=== PATIENT | female | born 1970 | race Caucasian/White ===

== ENCOUNTER 2019-09-20 08:29 | Outpatient (CLI) | payer OTHER, SELFPAY ==
[2019-09-20 08:47] LABS: Basophils Absolute Auto 0.04 K/mm3 (0.00-0.10); Basophils Percent Auto 0.7 % (0.0-1.0); Eosinophils Absolute Auto 0.09 K/mm3 (0.02-0.50); Eosinophils Percent Auto 1.6 % (1.0-6.0); Hematocrit 38.9 % (35.0-49.0); Hemoglobin 13.5 g/dL (12.0-15.0); Immature Granulocyte Absolute 0.02 K/mm3 (0.00-0.00); Immature Granulocyte Percent A 0.3 % (0.0-0.0); Lymphocytes Absolute Auto 1.69 K/mm3 (1.10-4.50); Lymphocytes Percent Auto 29.1 % (18.0-42.0); Mean Corpuscular HGB Conc 34.7 g/dL (32.0-36.0); Mean Corpuscular Hemoglobin 31.3 pg (27.0-31.0); Mean Corpuscular Volume 90.3 fL (78.0-102.0); Mean Platelet Volume 9.2 fl (9.2-11.8); Monocytes Absolute Auto 0.43 K/mm3 (0.10-0.90); Monocytes Percent Auto 7.4 % (2.0-11.0); Neutrophils Absolute Auto 3.5 K/mm3 (1.7-7.2); Neutrophils Percent Auto 60.9 % (50.0-70.0); Platelet Count Result 227 K/mm3 (150-420); Red Blood Count 4.31 M/mm3 (4.20-5.40); Red Cell Distribution Width 11.3 % (11.6-14.4); White Blood Count 5.8 K/mm3 (4.8-10.8)
[2019-09-20 09:30] LABS: Alanine Aminotransferase 52 U/L (14-59); Albumin Level 3.8 g/dL (3.4-5.0); Alkaline Phosphatase 65 U/L (46-116); Anion Gap 10.3 mmol/L (7-16); Aspartate Amino Transferase 35 U/L (15-37); Bilirubin,Total 0.6 mg/dL (0.00-1.00); Blood Urea Nitrogen 12 mg/dL (7-18); Calcium 8.7 mg/dL (8.5-10.1); Carbon Dioxide 30 mmol/L (21-32); Chloride 105 mmol/L (98-108); Estimated Glomerular Filt Rate > 60; Glucose 89 mg/dL (70-99); Osmolality Calculated 290 mOsm/kg (285-295); Potassium 4.3 mmol/L (3.5-5.1); Sodium 141 mmol/L (136-145); Total Protein 6.7 g/dL (6.4-8.2)
[2019-09-23 06:12] LABS: CA 27.29 13 U/mL (<38)
== END 2019-09-20 08:30 | disposition home or self-care (01) ==
PROVIDERS: PCP Internal Medicine; Visit Provider Internal Medicine Hematology & Oncology
DX: C50.212 Malignant neoplasm of upper-inner quadrant of left female breast (principal); Z17.0 Estrogen receptor positive status [ER+]
CPT/HCPCS: 36415; 80053; 85025; 86300

== ENCOUNTER 2019-09-20 10:30 | Outpatient (CLI) | payer OTHER, SELFPAY ==
--- NOTE | ~2019-09-20 | MM_ITS ---
EXAMINATION: MM screening fuad BI w jackeline HISTORY: Screening mammogram, history of left breast cancer TECHNIQUE: Craniocaudal and mediolateral oblique 3-D tomosynthesis images were obtained and synthetic 2-D images were generated. CAD analysis was submitted and interpreted. COMPARISON: 09/18/2018, 09/14/2017, 09/02/2016 BREAST PARENCHYMAL COMPOSITION: There are scattered areas of fibroglandular density. FINDINGS: There is continual interval decrease in prominence of lumpectomy changes in the posterior t hird of the inner left breast. There is no evidence of suspicious mass, calcification, or architectur al distortion to suggest malignancy in either breast. There has been no suspicious interval change. IMPRESSION: 1. No mammographic evidence of malignancy. 2. Recommend routine screening mammography in one year. BI-RADS Category 2: Benign finding(s). Reviewed, dictated and finalized at location A.
== END 2019-09-20 10:31 | disposition home or self-care (01) ==
LOC: ANHIMG 10:33
PROVIDERS: PCP Internal Medicine; Visit Provider Internal Medicine Hematology & Oncology
DX: Z12.31 Encounter for screening mammogram for malignant neoplasm of breast (principal)
CPT/HCPCS: 77063; 77067

== ENCOUNTER 2019-10-02 09:38 | Outpatient (CLI) | payer OTHER, SELFPAY ==
[2019-10-05 04:56] LABS: FSH 33.5 mIU/mL (***)
[2019-10-09 16:54] LABS: Estradiol, Ultrasensitive 135 pg/mL
== END 2019-10-02 09:39 | disposition home or self-care (01) ==
PROVIDERS: PCP Internal Medicine; Visit Provider Internal Medicine Hematology & Oncology
DX: C50.212 Malignant neoplasm of upper-inner quadrant of left female breast (principal); Z17.0 Estrogen receptor positive status [ER+]
CPT/HCPCS: 36415; 82670; 83001

== ENCOUNTER 2020-03-13 07:35 | Outpatient (CLI) | payer OTHER, SELFPAY ==
[2020-03-13 07:49] LABS: Basophils Absolute Auto 0.04 K/mm3 (0.00-0.10); Basophils Percent Auto 0.7 % (0.0-1.0); Eosinophils Absolute Auto 0.11 K/mm3 (0.02-0.50); Eosinophils Percent Auto 1.8 % (1.0-6.0); Hematocrit 38.9 % (35.0-49.0); Hemoglobin 13.2 g/dL (12.0-15.0); Immature Granulocyte Absolute 0.01 K/mm3 (0.00-0.00); Immature Granulocyte Percent A 0.2 % (0.0-0.0); Lymphocytes Absolute Auto 1.56 K/mm3 (1.10-4.50); Lymphocytes Percent Auto 25.7 % (18.0-42.0); Mean Corpuscular HGB Conc 33.9 g/dL (32.0-36.0); Mean Corpuscular Hemoglobin 31.1 pg (27.0-31.0); Mean Corpuscular Volume 91.7 fL (78.0-102.0); Mean Platelet Volume 8.6 fl (9.2-11.8); Monocytes Absolute Auto 0.47 K/mm3 (0.10-0.90); Monocytes Percent Auto 7.7 % (2.0-11.0); Neutrophils Absolute Auto 3.9 K/mm3 (1.7-7.2); Neutrophils Percent Auto 63.9 % (50.0-70.0); Platelet Count Result 224 K/mm3 (150-420); Red Blood Count 4.24 M/mm3 (4.20-5.40); Red Cell Distribution Width 11.4 % (11.6-14.4); White Blood Count 6.1 K/mm3 (4.8-10.8)
[2020-03-13 08:22] LABS: Alanine Aminotransferase 69 U/L (14-59); Albumin Level 3.9 g/dL (3.4-5.0); Alkaline Phosphatase 63 U/L (46-116); Anion Gap 7 mmol/L (8-16); Aspartate Amino Transferase 35 U/L (15-37); Bilirubin,Total 0.6 mg/dL (0.00-1.00); Blood Urea Nitrogen 15 mg/dL (7-18); Calcium 8.8 mg/dL (8.5-10.1); Carbon Dioxide 31 mmol/L (21-32); Chloride 105 mmol/L (98-108); Estimated Glomerular Filt Rate > 60; Glucose 86 mg/dL (70-99); Osmolality Calculated 295 mOsm/kg (285-295); Potassium 4.2 mmol/L (3.5-5.1); Sodium 143 mmol/L (136-145); Total Protein 6.7 g/dL (6.4-8.2)
[2020-03-17 09:19] LABS: CA 27.29 11 U/mL (<38)
== END 2020-03-13 07:36 | disposition home or self-care (01) ==
LOC: CHSLAB 07:39
PROVIDERS: PCP Internal Medicine; Visit Provider Internal Medicine Hematology & Oncology
DX: C50.212 Malignant neoplasm of upper-inner quadrant of left female breast (principal)
CPT/HCPCS: 36415; 80053; 82378; 85025; 86300

== ENCOUNTER 2020-09-16 06:34 | Outpatient (CLI) | payer OTHER, SELFPAY ==
[2020-09-16 06:55] LABS: Basophils Absolute Auto 0.04 K/mm3 (0.00-0.10); Basophils Percent Auto 0.6 % (0.0-1.0); Eosinophils Absolute Auto 0.12 K/mm3 (0.02-0.50); Eosinophils Percent Auto 1.7 % (1.0-6.0); Hematocrit 37.1 % (35.0-49.0); Hemoglobin 12.7 g/dL (12.0-15.0); Immature Granulocyte Absolute 0.02 K/mm3 (0.00-0.00); Immature Granulocyte Percent A 0.3 % (0.0-0.0); Lymphocytes Absolute Auto 1.77 K/mm3 (1.10-4.50); Lymphocytes Percent Auto 24.6 % (18.0-42.0); Mean Corpuscular HGB Conc 34.2 g/dL (32.0-36.0); Mean Corpuscular Hemoglobin 31.4 pg (27.0-31.0); Mean Corpuscular Volume 91.6 fL (78.0-102.0); Mean Platelet Volume 9.2 fl (9.2-11.8); Monocytes Absolute Auto 0.58 K/mm3 (0.10-0.90); Monocytes Percent Auto 8.1 % (2.0-11.0); Neutrophils Absolute Auto 4.7 K/mm3 (1.7-7.2); Neutrophils Percent Auto 64.7 % (50.0-70.0); Platelet Count Result 217 K/mm3 (150-420); Red Blood Count 4.05 M/mm3 (4.20-5.40); Red Cell Distribution Width 11.6 % (11.6-14.4); White Blood Count 7.2 K/mm3 (4.8-10.8)
[2020-09-16 07:40] LABS: Alanine Aminotransferase 77 U/L (14-59); Albumin Level 3.6 g/dL (3.4-5.0); Alkaline Phosphatase 104 U/L (46-116); Anion Gap 7 mmol/L (8-16); Aspartate Amino Transferase 35 U/L (15-37); Bilirubin,Total 0.3 mg/dL (0.00-1.00); Blood Urea Nitrogen 16 mg/dL (7-18); Calcium 8.3 mg/dL (8.5-10.1); Carbon Dioxide 27 mmol/L (21-32); Chloride 106 mmol/L (98-108); Estimated Glomerular Filt Rate > 60; Glucose 102 mg/dL (70-99); Osmolality Calculated 291 mOsm/kg (285-295); Potassium 4.3 mmol/L (3.5-5.1); Sodium 140 mmol/L (136-145); Total Protein 6.5 g/dL (6.4-8.2)
[2020-09-20 07:46] LABS: CA 27.29 10 U/mL (<38); FSH 12.5 mIU/mL (***)
[2020-09-23 17:07] LABS: Estradiol, Ultrasensitive 111 pg/mL
== END 2020-09-16 06:35 | disposition home or self-care (01) ==
LOC: CHSLAB 06:37
PROVIDERS: PCP Internal Medicine; Visit Provider Internal Medicine Hematology & Oncology
DX: C50.212 Malignant neoplasm of upper-inner quadrant of left female breast (principal); Z17.0 Estrogen receptor positive status [ER+]
CPT/HCPCS: 36415; 80053; 82670; 83001; 85025; 86300

== ENCOUNTER 2020-09-22 09:52 | Outpatient (CLI) | payer OTHER, SELFPAY ==
--- NOTE | ~2020-09-22 | MM_ITS ---
EXAMINATION: MM screening fuad BI w jackeline HISTORY: Screening mammogram TECHNIQUE: Craniocaudal and mediolateral oblique 3-D tomosynthesis images were obtained and synthetic 2-D images were generated. CAD analysis was submitted and interpreted. COMPARISON: 09/20/2019, 09/18/2018 bilateral digital screening mammogram examinations BREAST PARENCHYMAL COMPOSITION: There are scattered areas of fibroglandular density. FINDINGS: Stable postoperative scarring of the posterior inner left breast; history of left partial m astectomy for breast cancer in 2016. There is no evidence of suspicious mass, calcification, or archi tectural distortion to suggest malignancy in either breast. There has been no suspicious interval denis nge. IMPRESSION: 1. No mammographic evidence of malignancy. 2. Recommend routine screening mammography in one year. BI-RADS Category 2: Benign finding(s). Reviewed, dictated and finalized at location A.
== END 2020-09-22 09:53 | disposition home or self-care (01) ==
LOC: ANHIMG 09:54
PROVIDERS: PCP Internal Medicine; Visit Provider Nurse Practitioner Adult Health
DX: Z12.31 Encounter for screening mammogram for malignant neoplasm of breast (principal)
CPT/HCPCS: 77063; 77067

== ENCOUNTER 2021-01-21 07:32 | Outpatient (CLI) | payer OTHER, SELFPAY ==
[2021-01-21 07:48] LABS: Basophils Absolute Auto 0.04 K/mm3 (0.00-0.10); Basophils Percent Auto 0.8 % (0.0-1.0); Eosinophils Percent Auto 1.9 % (1.0-6.0); Hematocrit 39.8 % (35.0-49.0); Hemoglobin 13.5 g/dL (12.0-15.0); Immature Granulocyte Absolute 0.01 K/mm3 (0.00-0.00); Immature Granulocyte Percent A 0.2 % (0.0-0.0); Lymphocytes Absolute Auto 1.75 K/mm3 (1.10-4.50); Lymphocytes Percent Auto 32.9 % (18.0-42.0); Mean Corpuscular HGB Conc 33.9 g/dL (32.0-36.0); Mean Corpuscular Volume 91.3 fL (78.0-102.0); Mean Platelet Volume 8.7 fl (9.2-11.8); Monocytes Absolute Auto 0.45 K/mm3 (0.10-0.90); Monocytes Percent Auto 8.5 % (2.0-11.0); Neutrophils Percent Auto 55.7 % (50.0-70.0); Platelet Count Result 208 K/mm3 (150-420); Red Blood Count 4.36 M/mm3 (4.20-5.40); Red Cell Distribution Width 11.7 % (11.6-14.4); White Blood Count 5.3 K/mm3 (4.8-10.8)
[2021-01-21 07:56] LABS: Appearance Urine Sl Cloudy (Clear); Bilirubin Urine Negative (Negative); Color Urine Light Yellow (Yellow); Glucose Urine UA Negative (Negative); Ketones Urine Negative (Negative); Leukocyte Esterase Ur 1+ (Negative); Nitrate Urine Negative (Negative); Protein Urine Negative (Negative); Urobilinogen Urine 0.2 mg/dL (0.2-1.0)
[2021-01-21 08:08] LABS: Add Urine Microscopic? YES; Bacteria Urine 1+ /hpf; Blood Urine Trace-lysed (Negative); RBC Urine 0-2 /hpf (0-2); Squamous Epithelial Cell Urine Moderate /hpf (Few)
[2021-01-21 08:38] LABS: Alanine Aminotransferase 63 U/L (14-59); Albumin Level 3.8 g/dL (3.4-5.0); Alkaline Phosphatase 69 U/L (46-116); Anion Gap 10 mmol/L (8-16); Aspartate Amino Transferase 33 U/L (15-37); Bilirubin,Total 0.7 mg/dL (0.00-1.00); Blood Urea Nitrogen 10 mg/dL (7-18); Calcium 8.4 mg/dL (8.5-10.1); Carbon Dioxide 29 mmol/L (21-32); Chloride 106 mmol/L (98-108); Cholesterol 182 mg/dL (0-200); Estimated Glomerular Filt Rate > 60; Free T3 2.77 pg/mL (2.18-3.98); Free T4 Free Thyroxine 0.92 ng/dL (0.76-1.46); Glucose 104 mg/dL (70-99); HDL Direct 41 mg/dL (40-60); LDL Cholesterol Calculated 117 mg/dL (<130); Osmolality Calculated 299 mOsm/kg (285-295); Potassium 4.1 mmol/L (3.5-5.1); Sodium 145 mmol/L (136-145); Thyroid Stimulating Hormone 3.07 uIU/mL (0.36-3.74); Total Protein 6.7 g/dL (6.4-8.2); Triglycerides 120 mg/dL (0-150)
[2021-01-25 12:15] LABS: Vitamin D 25 Hydroxy 30 ng/mL (30-100)
== END 2021-01-21 07:33 | disposition home or self-care (01) ==
LOC: CHSLAB 07:34
PROVIDERS: PCP Internal Medicine; Visit Provider Internal Medicine
DX: Z00.00 Encounter for general adult medical examination without abnormal findings (principal)
CPT/HCPCS: 36415; 80053; 80061; 81001; 82306; 84439; 84443; 84481; 85025

== ENCOUNTER 2021-04-03 15:42 | Outpatient (CLI) | payer OTHER, SELFPAY ==
[2021-04-03 17:05] LABS: Alanine Aminotransferase 37 U/L (14-59); Albumin Level 3.4 g/dL (3.4-5.0); Alkaline Phosphatase 64 U/L (46-116); Anion Gap 9 mmol/L (8-16); Aspartate Amino Transferase 24 U/L (15-37); Bilirubin,Total 0.6 mg/dL (0.00-1.00); Blood Urea Nitrogen 17 mg/dL (7-18); Calcium 8.6 mg/dL (8.5-10.1); Carbon Dioxide 25 mmol/L (21-32); Chloride 105 mmol/L (98-108); Estimated Glomerular Filt Rate > 60; Glucose 102 mg/dL (70-99); Osmolality Calculated 289 mOsm/kg (285-295); Potassium 3.8 mmol/L (3.5-5.1); Sodium 139 mmol/L (136-145); Total Protein 6.2 g/dL (6.4-8.2)
[2021-04-08 07:16] LABS: FSH 41.9 mIU/mL (***)
== END 2021-04-03 15:43 | disposition home or self-care (01) ==
LOC: CHSLAB 15:44
PROVIDERS: PCP Internal Medicine; Visit Provider Internal Medicine Medical Oncology
DX: Z85.3 Personal history of malignant neoplasm of breast (principal); C50.212 Malignant neoplasm of upper-inner quadrant of left female breast; Z17.0 Estrogen receptor positive status [ER+]
CPT/HCPCS: 36415; 80053; 83001

== ENCOUNTER 2021-04-22 18:55 | Outpatient (CLI) | payer OTHER, SELFPAY ==
[2021-04-26 08:29] LABS: LH 32.5 mIU/mL (***)
== END 2021-04-22 18:56 | disposition home or self-care (01) ==
LOC: CHSLAB 18:57
PROVIDERS: PCP Internal Medicine; Visit Provider Internal Medicine Hematology & Oncology
DX: C50.212 Malignant neoplasm of upper-inner quadrant of left female breast (principal); Z17.0 Estrogen receptor positive status [ER+]
CPT/HCPCS: 36415; 83002

== ENCOUNTER 2021-04-30 10:15 | Outpatient (CLI) | payer OTHER, SELFPAY ==
[2021-04-30 10:42] LABS: Hemoglobin A1C 5.6 % (<5.7)
[2021-04-30 11:07] LABS: Alanine Aminotransferase 30 U/L (14-59); Albumin Level 3.8 g/dL (3.4-5.0); Alkaline Phosphatase 72 U/L (46-116); Anion Gap 8 mmol/L (8-16); Aspartate Amino Transferase 18 U/L (15-37); Bilirubin,Total 0.7 mg/dL (0.00-1.00); Blood Urea Nitrogen 15 mg/dL (7-18); Carbon Dioxide 28 mmol/L (21-32); Chloride 105 mmol/L (98-108); Estimated Glomerular Filt Rate > 60; Glucose 86 mg/dL (70-99); Osmolality Calculated 291 mOsm/kg (285-295); Potassium 3.8 mmol/L (3.5-5.1); Sodium 141 mmol/L (136-145); Total Protein 6.5 g/dL (6.4-8.2)
== END 2021-04-30 10:16 | disposition home or self-care (01) ==
LOC: CHSLAB 10:17
PROVIDERS: PCP Internal Medicine; Visit Provider Internal Medicine
DX: R73.01 Impaired fasting glucose (principal); R94.5 Abnormal results of liver function studies
CPT/HCPCS: 36415; 80053; 83036

== ENCOUNTER 2021-06-22 02:54 | Day surgery (SDC) | payer OTHER, SELFPAY ==
[2021-06-10 13:51] VITALS: BMI 26.5
--- NOTE | 2021-06-20 12:50 | P.PNAN_ITS ---
Anes - Initial Pre Proc Eval Procedure: Operation Date: 06/22/21 09:30 Proposed Procedures p Screening Colonoscopy - Nima Su MD Date/Time: 06/20/21 12:50 Surgeon: Nima Su MD Pre Op Diagnosis: famiy hx of colon ca, neoplasm screening Patient Data Age: 51 Gender: F Height: 1.6 m Weight: 68 kg Allergies Allergy/AdvReac Type Severity Reaction Status Date / Time No Known Allergies Allergy Verified 06/22/21 08:23 Home Medications Medication Instructions Recorded Confirmed Type cholecalciferol (vitamin D3) 25 mcg PO DAILY 06/10/21 06/10/21 History [Vitamin D3] tamoxifen 20 mg PO DAILY 06/10/21 06/10/21 History Patient hx anesthesia problems: none Family hx anesthesia problems: none Results Review: All pre-operative results and documents have been reviewed as part of the pre-operative evaluation. [facility] Past Medical History Medical History (Updated 06/20/21 @ 12:51 by Jonathon Dove DO) History of breast cancer 2015, chemo/radiation Social History Social History Smoking status: Never smoker Alcohol intake: never Substance use: never Substance use type: does not use Living arrangements: with family Spiritual care concerns: No Anes - Eval Final PreProcedure Day of Procedure 06/20/21 12:50 Patient weight: overweight Heart: regular rate and rhythm Lungs: clear to auscultation and normal air movement Airway: Mallampati scale class II Neurological: alert and oriented Last oral intake: >/= 8 hours ASA classification: II Emergent: no Anesthetic plan: proceed Anesthesia type and monitoring: general GIVS and standard monitoring Results Review: All pre-operative results and documents have been reviewed as part of the pre-operative evaluation. Informed Consent: The patient's anesthetic plan and its attendant risks and benefits were discussed with the patient/family/POA. Questions were solicited and answers provided to the satisfaction of the patient/family/POA.
[2021-06-22 08:24] VITALS: BP 159/92; PULSE 92; RESP 20; TEMP 36.2; O2SAT 99; BMI 26.6
--- NOTE | 2021-06-22 08:29 | PM.HPGS ---
History of Present Illness History of Present Illness Consent: Risks, benefits, and alternatives have been discussed and questions answered. Patient agrees to proceed with procedure. Chief complaint: famiy hx of colon ca, neoplasm screening Narrative: Asha Coelho is a 51 year old female here for first screening colonoscopy Review of Systems Constitutional: Constitutional: Denies headache(s) and Denies weakness Eyes: Eyes: Denies blurry vision ENT: Reports Normal hearing present, Denies headache(s) and Denies neck pain Cardiovascular: Cardiovascular: Denies chest pain and Denies dyspnea Respiratory: Respiratory: Denies dyspnea Gastrointestinal: Gastrointestinal: Reports no additional gastrointestinal complaints Genitourinary: Genitourinary: Denies dysuria Musculoskeletal: Musculoskeletal: Denies neck pain Integumentary/Breasts: Skin/Breast: Denies dry skin Neurologic: Reports Normal hearing present, Denies headache(s) and Denies weakness Psychiatric: Psychiatric: Denies anxiety Endocrine: Endocrine: Denies change in body appearance Hematologic/Lymphatic: Hematologic/Lymphatic: Denies easy bleeding Allergic/Immunologic: Allergic/Immunologic: Denies urticaria PMFSH Past Medical History Medical History (Updated 06/22/21 @ 08:30 by Nima Su MD) Colon cancer screening History of breast cancer 2014, chemo/radiation Social History Social History Smoking status: Never smoker Alcohol intake: never Substance use: never Substance use type: does not use Living arrangements: with family Spiritual care concerns: No Meds Home Medications and Allergies Home Medications Medication Instructions Recorded Confirmed Type cholecalciferol (vitamin D3) 25 mcg PO DAILY 06/10/21 06/10/21 History [Vitamin D3] tamoxifen 20 mg PO DAILY 06/10/21 06/10/21 History Allergies Allergy/AdvReac Type Severity Reaction Status Date / Time No Known Allergies Allergy Verified 06/22/21 08:23 Vital Signs Vital Signs - 24 hr 06/22/21 08:24 Temperature 97.1 F L Pulse Rate 92 Respiratory Rate 20 Blood Pressure 159/92 H Pulse Oximetry 99 Exam Const: General: comfortable and no acute distress HENMT: General nose exam: Normal nares present Eyes: General: appearance normal, both eyes and all related structures Neck: Neck: no JVD Resp: Auscultation: clear to auscultation bilaterally Cardio: Rate: regular rate Rhythm: regular rhythm GI: Inspection: non-distended GI Palp: Yes Soft to palpation Skin: General skin exam: normal color Neuro: General: gait normal Speech: normal speech Extrem: General: normal to inspection Psych: Mental Status: mental status grossly normal Assessment and Plan Assessment and plan (1) Colon cancer screening: Code(s): Z12.11 - Encounter for screening for malignant neoplasm of colon Status: Acute Assessment and Plan: colonoscopy
[2021-06-22] MEDS: LACTATED RINGERS 1,000 ML 150 ML IV CONT (08:33)
[2021-06-22 08:58] VITALS: BP 159/92; PULSE 88; RESP 22; O2SAT 100
[2021-06-22 09:08] VITALS: BP 112/69; PULSE 72; RESP 23; O2SAT 100
[2021-06-22 09:18] VITALS: BP 125/67; PULSE 69; RESP 18; O2SAT 100
== END 2021-06-22 09:29 | disposition home or self-care (01) ==
PROVIDERS: PCP Internal Medicine; Visit Provider Internal Medicine Gastroenterology
PROC: 0DJD8ZZ Inspection of Lower Intestinal Tract, Via Natural or Artificial Opening Endoscopic (ICD-10-PCS; CPT 45378; principal; 2021-06-22 09:30)
DX: Z12.11 Encounter for screening for malignant neoplasm of colon (principal); D12.8 Benign neoplasm of rectum; K64.8 Other hemorrhoids; Z80.0 Family history of malignant neoplasm of digestive organs; Z85.3 Personal history of malignant neoplasm of breast; Z92.21 Personal history of antineoplastic chemotherapy; Z92.3 Personal history of irradiation; Z79.810 Long term (current) use of selective estrogen receptor modulators (SERMs)
CPT/HCPCS: 45385; 88305; J2001; J2704; J7120

== ENCOUNTER 2021-10-07 09:19 | Outpatient (CLI) | payer OTHER, SELFPAY ==
[2021-10-07 09:29] LABS: Basophils Absolute Auto 0.04 K/mm3 (0.00-0.10); Basophils Percent Auto 0.6 % (0.0-1.0); Eosinophils Absolute Auto 0.06 K/mm3 (0.02-0.50); Eosinophils Percent Auto 0.9 % (1.0-6.0); Hematocrit 37.2 % (35.0-49.0); Hemoglobin 12.6 g/dL (12.0-15.0); Immature Granulocyte Absolute 0.03 K/mm3 (0.00-0.00); Immature Granulocyte Percent A 0.4 % (0.0-0.0); Lymphocytes Absolute Auto 1.72 K/mm3 (1.10-4.50); Lymphocytes Percent Auto 25.5 % (18.0-42.0); Mean Corpuscular HGB Conc 33.9 g/dL (32.0-36.0); Mean Corpuscular Hemoglobin 31.3 pg (27.0-31.0); Mean Corpuscular Volume 92.3 fL (78.0-102.0); Mean Platelet Volume 8.7 fl (9.2-11.8); Monocytes Absolute Auto 0.45 K/mm3 (0.10-0.90); Monocytes Percent Auto 6.7 % (2.0-11.0); Neutrophils Absolute Auto 4.4 K/mm3 (1.7-7.2); Neutrophils Percent Auto 65.9 % (50.0-70.0); Platelet Count Result 212 K/mm3 (150-420); Red Blood Count 4.03 M/mm3 (4.20-5.40); Red Cell Distribution Width 11.9 % (11.6-14.4); White Blood Count 6.7 K/mm3 (4.8-10.8)
[2021-10-07 09:44] LABS: Alanine Aminotransferase 20 U/L (14-59); Albumin Level 3.6 g/dL (3.4-5.0); Alkaline Phosphatase 65 U/L (46-116); Anion Gap 7 mmol/L (8-16); Aspartate Amino Transferase 16 U/L (15-37); Bilirubin,Total 0.8 mg/dL (0.00-1.00); Blood Urea Nitrogen 11 mg/dL (7-18); Calcium 8.8 mg/dL (8.5-10.1); Carbon Dioxide 28 mmol/L (21-32); Chloride 106 mmol/L (98-108); Estimated Glomerular Filt Rate > 60; Glucose 128 mg/dL (70-99); Osmolality Calculated 293 mOsm/kg (285-295); Sodium 141 mmol/L (136-145); Total Protein 6.6 g/dL (6.4-8.2)
[2021-10-09 14:43] LABS: CA 15-3 8 U/mL (<32)
== END 2021-10-07 09:20 | disposition home or self-care (01) ==
LOC: CHSLAB 09:21
PROVIDERS: PCP Internal Medicine; Visit Provider Internal Medicine Hematology & Oncology
DX: C50.212 Malignant neoplasm of upper-inner quadrant of left female breast (principal); Z17.0 Estrogen receptor positive status [ER+]
CPT/HCPCS: 36415; 80053; 85025; 86300

== ENCOUNTER 2021-10-07 10:19 | Outpatient (CLI) | payer OTHER, SELFPAY ==
--- NOTE | ~2021-10-07 | MM_ITS ---
EXAMINATION: MM screening fuad BI w jackeline HISTORY: Screening TECHNIQUE: Craniocaudal and mediolateral oblique 3-D tomosynthesis images were obtained and synthetic 2-D images were generated. CAD analysis was submitted and interpreted. COMPARISON: Comparison to multiple prior studies sequentially, with oldest reviewed study dated 09/14. BREAST PARENCHYMAL COMPOSITION: Breast composed of scattered areas of fibroglandular density. FINDINGS: Stable scarring from previous lumpectomy in the upper inner quadrant of the left breast. Th ere is no evidence of suspicious mass, calcification, or architectural distortion to suggest malignan cy in either breast. There has been no suspicious interval change. IMPRESSION: 1. No mammographic evidence of malignancy. 2. Recommend routine screening mammography in one year. BI-RADS Category 1: Negative Reviewed, dictated and finalized at location A.
== END 2021-10-07 10:20 | disposition home or self-care (01) ==
LOC: ANHIMG 10:20
PROVIDERS: PCP Internal Medicine; Visit Provider Internal Medicine Hematology & Oncology
DX: Z12.31 Encounter for screening mammogram for malignant neoplasm of breast (principal)
CPT/HCPCS: 77063; 77067

== ENCOUNTER 2021-11-20 00:45 | Day surgery (SDC) | payer OTHER, SELFPAY ==
[2021-11-16 16:44] VITALS: BMI 25.0
--- NOTE | 2021-11-16 17:07 | PC.NURSE ---
Report to the Outpatient Waiting Room, entrance under the green pavilion located off [facility], at time _0600 on date 11/20/21. OR Time: 0730__. - You and your visitor will be asked to self-screen and do not enter if you have any COVID symptoms. - Only one visitor and NO children visitors are allowed at this time. - The patient visitor is requested to leave or wait in car when not with patient due to restrictions. - A mask is required within the hospital. Patients may have clear liquids (water, carbonated beverages, clear teas, apple juice) until 3 hours prior to surgery with a maximum of 20 ounces. - No food from midnight until time of surgery - Infants may have breast milk until 4 hours before surgery, formula 6 hours prior to surgery. - Children will be allowed to drink immediately following surgery. If applicable, please bring a bottle or sippy cup to assist with drinking. Juice, water, soda, and popsicles are readily available. For infants on formula, please bring formula the day of surgery. Pacifiers are allowed. Take the following medications with a SIP of water the morning of surgery: _tamoxifen Medications to discontinue per physician _vitamin d3_ Date to take last dose_11/17/21 Please no make-up, nail gabonese, hairspray, perfume, deodorant, or body powder the day of surgery. No jewelry (including any body piercings) or valuables the day of surgery, leave them at home. Please take a shower or bath the night before, or the morning of, surgery with an antibacterial soap. Wear comfortable, loose fitting clothing. Children are encouraged to wear pajamas. - Jewelry must be removed prior to entering the operating room. Rings and piercings that are not removed may be cut off. - The hospital will not accept responsibility for valuables. - Please leave all valuables, including medications, at home the day of surgery. If you are going home after surgery, a licensed dump truck driver off highway must drive you home. - NO public transportation without another adult. - We recommend that an adult stay with you for 24 hours following discharge. - We also recommend that you do not drive, make important decision, drink alcoholic beverages, or take any drugs that were not prescribed by your health care provider for at least 24 hours after your discharge time. For Pediatric surgeries, we recommend two adults accompany the child home (only one inside the building at this time). Follow any additional instructions given to you from your surgeon. If you or anyone in your household have experienced Covid symptoms in the past week, please notify your surgeon or the nurse liaison at the phone number below for possible testing. Telephone instructions given to Asha Coelho and asked if any additional questions and then verbalized understanding. Patient advised to call surgeon office or pre surgery nurse liaison [phone] if any additional questions.
--- NOTE | 2021-11-17 07:15 | PM.IMHP ---
H&P: HPI History of Present Illness Date/Time: 11/17/21 07:15 Chief Complaint: pelvic pain and enlarged uterus Narrative: this is a 51-year-old female with a history of breast cancer who like to have uterus ovaries and tubes. She has a history of breast cancer and symptomatic uterine fibroids. Risks and benefits reviewed including but not exclusive of , aspiration pneumonia, bleeding, transfusion, perforation injury to bowel, bladder, ureters, or other internal organs with need for open laparotomy. She received the [employer] handout entitled hysterectomy as well as the [facility] handout. She had all questions answered and asked to proceed PMFSH Past Medical History Medical History (Updated 11/17/21 @ 07:21 by Harmeet Shoemaker MD) Colon cancer screening History of breast cancer 2014, chemo/radiation Social History Social History Smoking status: Never smoker Alcohol intake: never Substance use: never Substance use type: does not use Spiritual care concerns: No Meds Home Medications and Allergies Home Medications Medication Instructions Recorded Confirmed Type cholecalciferol (vitamin D3) 25 25 mcg PO DAILY 06/10/21 11/16/21 History mcg (1,000 unit) tablet (Vitamin D3) tamoxifen 20 mg tablet 20 mg PO DAILY 06/10/21 11/16/21 History Allergies Allergy/AdvReac Type Severity Reaction Status Date / Time No Known Allergies Allergy Verified 06/22/21 08:23 Exam Const: General: cooperative, healthy appearing and comfortable Nutritional Appearance: average body habitus Orientation/consciousness: oriented to person, oriented to place and oriented to time HENMT: Head: normal to inspection Chest: Chest palpation & inspection: normal inspection of the chest Resp: Effort & Inspection: normal respiratory effort Cardio: Rate: regular rate Rhythm: regular rhythm GI: Inspection: normal to inspection : External Female Exam: normal external appearance Speculum Exam - Vagina: normal appearance of the vagina Speculum Exam - Cervix: normal appearance of the cervix Bimanual exam- vagina & uterus: enlarged Bimanual Exam- Adnexa, other: normal adnexae Assessment and Plan Assessment and plan (1) Enlarged uterus: Code(s): N85.2 - Hypertrophy of uterus Status: Acute (2) History of breast cancer: Code(s): Z85.3 - Personal history of malignant neoplasm of breast Status: Acute Plan robotic total vaginal hysterectomy and bilateral salpingo-oophorectomy
[2021-11-20] VITALS (12 sets, daily range): BP systolic 117–149; BP diastolic 69–88; PULSE 50–98; RESP 12–18; TEMP 36.1–37.1; O2SAT 99–100
--- NOTE | 2021-11-20 06:15 | WPDHPUPDATE1 ---
History and Physical Update Update Date/Time: 11/20/21 06:15 History and Physical has been reviewed, including an updated exam of the patient. There are NO changes in the patient's condition. Risks, benefits, and alternatives have been discussed and questions answered. Patient agrees to proceed with procedure.
--- NOTE | 2021-11-20 06:43 | P.PNAN_ITS ---
Anes - Initial Pre Proc Eval Procedure: Operation Date: 11/20/21 07:30 Proposed Procedures p Robotic Assisted Total Vaginal Hysterectomy with Bilateral Salpingo- Oophorectomy - Harmeet Shoemaker MD Date/Time: 11/20/21 06:43 Surgeon: Harmeet Shoemaker MD Pre Op Diagnosis: Hx of Breast Ca, Enlarged Uterus Patient Data Age: 51 Gender: F Height: 1.63 m Weight: 65.7 kg Last Vital Signs Temp 36.1 C L 11/20/21 06:36 Pulse 98 11/20/21 06:36 Resp 16 11/20/21 06:36 BP 149/88 H 11/20/21 06:36 Pulse Ox 100 11/20/21 06:36 O2 Del Method Room Air 11/20/21 06:36 Allergies Allergy/AdvReac Type Severity Reaction Status Date / Time No Known Allergies Allergy Verified 11/20/21 06:36 Home Medications Medication Instructions Recorded Confirmed Type cholecalciferol (vitamin D3) 25 25 mcg PO DAILY 06/10/21 11/20/21 History mcg (1,000 unit) tablet (Vitamin D3) tamoxifen 20 mg tablet 20 mg PO DAILY 06/10/21 11/20/21 History hydrocodone 5 mg-acetaminophen 325 1 tablet PO Q4H PRN pain #30 tabs 11/20/21 Rx mg tablet Patient hx anesthesia problems: none Family hx anesthesia problems: none Results Review: All pre-operative results and documents have been reviewed as part of the pre- operative evaluation. [facility] Past Medical History Medical History (Updated 11/20/21 @ 06:43 by Harmeet Doshi MD) Colon cancer screening Fibroid uterus History of breast cancer 2014, chemo/radiation Surgical History Surgical History (Updated 11/20/21 @ 06:43 by Harmeet Doshi MD) H/O colonoscopy S/P breast lumpectomy Social History Social History Smoking status: Never smoker Alcohol intake: never Substance use: never Substance use type: does not use Living arrangements: with family Spiritual care concerns: No Anes - Eval Final PreProcedure Day of Procedure 11/20/21 06:43 Patient weight: normal Heart: regular rate and rhythm Lungs: clear to auscultation Airway: Mallampati scale class II Neurological: alert and oriented Last oral intake: >/= 8 hours ASA classification: II Emergent: no Anesthesia type and monitoring: general ETT and standard monitoring Results Review: All pre-operative results and documents have been reviewed as part of the pre- operative evaluation. Informed Consent: The patient's anesthetic plan and its attendant risks and benefits were discussed with the patient/family/POA. Questions were solicited and answers provided to the satisfaction of the patient/family/POA.
[2021-11-20] MEDS: LACTATED RINGERS 1,000 ML 30 ML IV CONT ×2 (06:52→09:10)
[2021-11-20] MEDS: ACETAMINOPHEN 500 MG TABLET 1000 MG PO (06:53)
[2021-11-20] MEDS: KETOROLAC 15 MG/ML VIAL (*BKC) IV PUSH (06:53)
[2021-11-20] MEDS: ceFAZolin 2 GM/D5W 50 ML 2 GM/50 ML BAG IVPB (07:26)
--- NOTE | 2021-11-20 08:55 | P.OP_ITS ---
Procedure Note - Detailed Date of Procedure 11/20/21 Pre-op Diagnosis Hx of Breast Ca, Enlarged Uterus Post-op Diagnosis Same Procedure Performed Robotic total vaginal hysterectomy and bilateral salpingo-oophorectomy Surgeon Harmeet Shoemaker MD Anesthesia General Indications This is a 51-year-old female with the markedly enlarged uterus and pain with a history of breast cancer Findings Uterus and measures over 350g. Normal-appearing tubes and ovaries. Description of Procedure Patient was prepped draped in the normal sterile fashion placed in the dorsal lithotomy position. Under excellent trach anesthesia weighted speculum placed in posterior fornix vagina. Anterior lip of the cervix grasped with a single- tooth tenaculum. Uterus sounded to 11cm. Serial dilatation with fragmented dilators followed by passage of the 8. MARIA T and the 4. Cold cup. Next the 16 Hungarian catheter was placed in the bladder to drain clear urine. The weighted speculum was removed and the gloves were changed. A supraumbilical incision made the Veress needle passed in the abdomen. Abdomen filled with gas to the to the 15mmHg. The 8mm trocar advanced in the abdomen. Downside visualized no injury seen. Patient placed in Trendelenburg and right left lateral quadrant incisions made. 8mm trocars advanced under direct visualization assuring no injury. A right upper quadrant incision made and the 8mm trocar advanced under direct visualization assuring no injury. The robot was docked Attention was turned to the mortgage loan counselor. The left round ligament was grasped, burned, cut. Anteriorly a bladder flap was formed by sharply dissecting the peritoneum and reflecting the bladder caudally away from the cervix and uterus to the opposite round ligament. This was then grasped, burned, cut. Next the left infundibulopelvic structure was skeletonized in a to remove the ovary and tube. This was clamped, burned, cut and brought to the level of the previously cut round ligament. In like fashion removing the right adnexa the infundibulopelvic structure was clamped, burned, cut and brought to the level of the previously cut round ligament. The cardinal broad ligaments on the left were serially skeletonized hugging the cervix and uterus clamping burning cutting until the large tortuous uterine vessels were seen on left these were individually clamped, burned, cut. In like fashion the cardinal broad ligaments on the right were serially skeletonized clamping burning cutting and hugging the cervix and uterus until the uterine vessels could be seen on the right. These were also large and tortuous. These were individually clamped, burned, cut. Blanching the uterus was noted and a colpotomy incision was made. The uterus was markedly enlarged [id number] and for this reason a bivalve maneuver was undertaken with monopolar cautery. Uterus ovaries and tubes removed through the vagina. The vagina then closed with continuous running 0V lock from lateral edge to lateral edge back to the midline. The raw surface area was then sprinkled with Viola term. Blood loss estimated at25cc. All sponge, needle, instrument counts were correct. There were no immediate complications noted Estimated Blood Loss 25 Drains No Packing No Pathology Yes Complications No immediate complications Condition Stable Disposition PACU
[2021-11-20] MEDS: fentaNYL CITRATE INJ (*CRX) 100 MCG/2 ML VIAL 25 MCG IV PUSH ×2 (09:39→09:41)
--- NOTE | 2021-11-20 10:16 | ADMGEN ---
This patient, Asha Coelho, was transferred to post room #282 per bed from PACU.
[2021-11-20] MEDS: DEXTROSE 5%/LACTATED RINGERS 1,000 ML 125 ML IV CONT (10:41)
[2021-11-20] MEDS: KETOROLAC 30 MG/ML VIAL (*BKC) IV PUSH (12:56)
[2021-11-20] MEDS: HYDROcodone/acetaminophen (*CRX) 5-325 MG TABLET 1 TAB PO (16:33)
[2021-11-20] MEDS: DOCUSATE SODIUM 100 MG CAPSULE PO (16:33)
[2021-11-20] MEDS: SIMETHICONE 80 MG TAB.CHEW PO ×2 (16:33→20:46)
[2021-11-20] MEDS: IBUPROFEN 600 MG TABLET PO (20:41)
[2021-11-20] MEDS: HYDROcodone/acetaminophen (*CRX) 10-325 MG TABLET 1 TAB PO (20:45)
[2021-11-21 00:05] VITALS: BP 113/66; PULSE 70; RESP 16; TEMP 36.9; O2SAT 99
[2021-11-21 00:10] VITALS: PULSE 70; RESP 16; O2SAT 99
[2021-11-21] MEDS: KETOROLAC 30 MG/ML VIAL (*BKC) IV PUSH (02:53)
[2021-11-21 04:07] VITALS: BP 104/60; PULSE 64; RESP 16; TEMP 36.6; O2SAT 100
[2021-11-21 05:49] LABS: Basophils Percent Auto 0.3 % (0.2-1.2); Eosinophils Percent Auto 0.1 % (0-4.4); Hematocrit 33.6 % (37.0-47.0); Hemoglobin 11.7 g/dL (12.0-15.0); Immature Granulocyte Absolute 0.03 K/mm3 (0.00-0.031); Immature Granulocyte Percent A 0.3 % (0-0.5); Lymphocytes Absolute Auto 2.14 K/mm3 (0.9-3.2); Lymphocytes Percent Auto 24.2 % (18.3-44.2); Mean Corpuscular HGB Conc 34.8 g/dl (32-36); Mean Corpuscular Hemoglobin 31.8 pg (26-34); Mean Corpuscular Volume 91.3 fl (80-100); Monocytes Absolute Auto 0.8 K/mm3 (0.1-0.6); Monocytes Percent Auto 9.1 % (2.6-8.5); Neutrophils Absolute Auto 5.8 K/mm3 (1.3-6.7); Platelet Count Result 175 k/mm3 (150-375); Red Blood Count 3.68 M/mm3 (4.2-5.4); Red Cell Distribution Width 11.7 % (11.5-14.5); White Blood Count 8.8 K/mm3 (4.5-10.0)
[2021-11-21] MEDS: HYDROcodone/acetaminophen (*CRX) 10-325 MG TABLET 1 TAB PO ×2 (07:07→10:35)
[2021-11-21] MEDS: DOCUSATE SODIUM 100 MG CAPSULE PO (07:07)
[2021-11-21] MEDS: SIMETHICONE 80 MG TAB.CHEW PO ×2 (07:07→10:38)
--- NOTE | 2021-11-21 07:16 | PM.DS ---
DS: Admitting Diagnosis Discharge Date 11/21/2021 Admitting Diagnosis excessive bleeding enlarged uterus DS: Discharge Diagnosis Discharge Diagnosis (1) History of breast cancer: Code(s): Z85.3 - Personal history of malignant neoplasm of breast Status: Acute (2) Enlarged uterus: Code(s): N85.2 - Hypertrophy of uterus Status: Acute DS: Summary Hospital Course Reason for hospitalization: patient was admitted for robotic total vaginal hysterectomy and bilateral salpingo-oophorectomy Hospital Course: the patient underwent a robotic total vaginal hysterectomy and bilateral salpingo-oophorectomy. Her hospital course was unremarkable. In her 24hours stay she remained afebrile. She was up, voiding without difficulty, ambulating, generally without complaints. Time Spent with Patient Time attestation: Total time spent providing and/or coordinating discharge services: DS: Data Data Completed and Pending Pending studies at discharge: Pending at discharge 11/20/21 08:08 Surgical [PTH] Routine Labs on day of discharge: Labs from last 24 hours 11/21/21 11/20/21 05:42 06:44 WBC 8.8 RBC 3.68 L Hgb 11.7 L Hct 33.6 L MCV 91.3 MCH 31.8 MCHC 34.8 RDW 11.7 Plt Count 175 MPV 9.0 Immature Gran % (Auto) 0.3 Neut % (Auto) 66.0 Lymph % (Auto) 24.2 Bremer % (Auto) 9.1 H Eos % (Auto) 0.1 Baso % (Auto) 0.3 Lymph # (Auto) 2.14 Bremer # (Auto) 0.8 H Eos # (Auto) 0.0 Baso # (Auto) 0.0 Abs Immat Gran (auto) 0.03 Absolute Neuts (auto) 5.8 Absolute Nucleated RBC 0.0 Nucleated RBC % 0.0 Blood Type O Positive Antibody Screen Negative Discharge Plan Discharge Patient Disposition: Home, Self-Care Stand Alone Forms: General Discharge Instructions Follow-up/Referrals: Harmeet Haley MD [Physician] - Discharge Medications: New hydrocodone-acetaminophen 5-325 mg tablet 1 tablet PO Q4H PRN (Reason: pain) Qty: 30 0RF Continued tamoxifen 20 mg tablet 20 mg PO DAILY cholecalciferol (vitamin D3) [Vitamin D3] 25 mcg (1,000 unit) Tablet 25 mcg PO DAILY Other Ambulatory Orders: Type and Screen 14 Day (Routine) Timeframe: 3 Weeks Location: Determined by Patient Ordered By: Harmeet Shoemaker
[2021-11-21 07:31] VITALS: BP 145/66; PULSE 65; RESP 18; TEMP 36.8; O2SAT 100
[2021-11-21] MEDS: ENOXAPARIN 40 MG/0.4 ML SYRINGE SUB-Q (10:35)
[2021-11-21] MEDS: IBUPROFEN 600 MG TABLET PO (10:37)
== END 2021-11-21 11:00 | disposition home or self-care (01) ==
LOC: ANHSURGERY 06:16 → ANHOB2 10:30
PROVIDERS: PCP Internal Medicine; Visit Provider Obstetrics & Gynecology
PROC: (CPT 58554; principal; 2021-11-20 07:30)
DX: N85.01 Benign endometrial hyperplasia (principal); R10.2 Pelvic and perineal pain; Z85.3 Personal history of malignant neoplasm of breast; Z92.21 Personal history of antineoplastic chemotherapy; Z92.3 Personal history of irradiation; Z79.810 Long term (current) use of selective estrogen receptor modulators (SERMs)
CPT/HCPCS: 58554; S2900; 36415; 85025; 86850; 86900; 86901; 88307; 99199; A9270; J0690; J1100; J1650; J1885; J2250; J2370; J2405; J2704; J2710; J3010; J7030; J7120; J7121

== ENCOUNTER 2022-04-07 08:45 | Outpatient (CLI) | payer OTHER, SELFPAY ==
[2022-04-07 09:17] LABS: Alanine Aminotransferase 26 U/L (14-59); Albumin Level 4.1 g/dL (3.4-5.0); Alkaline Phosphatase 83 U/L (46-116); Anion Gap 6 mmol/L (8-16); Aspartate Amino Transferase 16 U/L (15-37); Bilirubin,Total 0.9 mg/dL (0.00-1.00); Blood Urea Nitrogen 11 mg/dL (7-18); Calcium 9.1 mg/dL (8.5-10.1); Carbon Dioxide 29 mmol/L (21-32); Chloride 102 mmol/L (98-108); Estimated Glomerular Filt Rate > 60; Glucose 99 mg/dL (70-99); Osmolality Calculated 283 mOsm/kg (285-295); Potassium 4.1 mmol/L (3.5-5.1); Sodium 137 mmol/L (136-145); Total Protein 7.5 g/dL (6.4-8.2)
[2022-04-07 09:34] LABS: Hematocrit 39.9 % (35.0-49.0); Hemoglobin 13.5 g/dL (12.0-15.0); Mean Corpuscular HGB Conc 33.8 g/dL (32.0-36.0); Mean Corpuscular Hemoglobin 30.1 pg (27.0-31.0); Mean Corpuscular Volume 88.9 fL (78.0-102.0); Red Blood Count 4.49 M/mm3 (4.20-5.40); Red Cell Distribution Width 11.6 % (11.6-14.4); White Blood Count 6.6 K/mm3 (4.8-10.8)
[2022-04-07 09:35] LABS: Basophils Absolute Auto 0.04 K/mm3 (0.00-0.10); Basophils Percent Auto 0.6 % (0.0-1.0); Eosinophils Absolute Auto 0.12 K/mm3 (0.02-0.50); Eosinophils Percent Auto 1.8 % (1.0-6.0); Immature Granulocyte Absolute 0.03 K/mm3 (0.00-0.00); Immature Granulocyte Percent A 0.5 % (0.0-0.0); Lymphocytes Absolute Auto 2.09 K/mm3 (1.10-4.50); Lymphocytes Percent Auto 31.6 % (18.0-42.0); Mean Platelet Volume 8.9 fl (9.2-11.8); Monocytes Absolute Auto 0.51 K/mm3 (0.10-0.90); Monocytes Percent Auto 7.7 % (2.0-11.0); Neutrophils Absolute Auto 3.8 K/mm3 (1.7-7.2); Neutrophils Percent Auto 57.8 % (50.0-70.0); Platelet Count Result 292 K/mm3 (150-420)
[2022-04-11 12:44] LABS: CA 15-3 9 U/mL (<32)
== END 2022-04-07 08:46 | disposition home or self-care (01) ==
LOC: CHSLAB 08:47
PROVIDERS: PCP Internal Medicine; Visit Provider Internal Medicine Hematology & Oncology
DX: C50.212 Malignant neoplasm of upper-inner quadrant of left female breast (principal); Z17.0 Estrogen receptor positive status [ER+]
CPT/HCPCS: 36415; 80053; 85025; 86300

== ENCOUNTER 2022-10-11 07:56 | Outpatient (CLI) | payer OTHER, SELFPAY ==
--- NOTE | ~2022-10-11 | MM_ITS ---
EXAMINATION: MM screening fuad BI w jackeline HISTORY: Screening mammogram, family history of breast cancer in her mother. TECHNIQUE: Craniocaudal and mediolateral oblique 3-D tomosynthesis images were obtained and synthetic 2-D images were generated. CAD analysis was submitted and interpreted. COMPARISON: 10/07/2021, 09/22/2020, 09/20/2019 BREAST PARENCHYMAL COMPOSITION:There are scattered areas of fibroglandular density. FINDINGS: There is stable postoperative change at the posterior, upper inner left breast. No suspicio us mass, calcification, or architectural distortion are identified in either breast to suggest malign rico. There has been no suspicious interval change. IMPRESSION: No mammographic evidence of malignancy. Recommend routine screening mammography in one year. BI-RADS Category 2: Benign finding(s). Reviewed, dictated and finalized at [facility].
== END 2022-10-11 07:57 | disposition home or self-care (01) ==
LOC: ANHIMG 08:00
PROVIDERS: PCP Internal Medicine; Visit Provider Internal Medicine Hematology & Oncology
DX: Z12.31 Encounter for screening mammogram for malignant neoplasm of breast (principal)
CPT/HCPCS: 77063; 77067

== ENCOUNTER 2022-10-11 09:16 | Outpatient (CLI) | payer OTHER, SELFPAY ==
[2022-10-11 09:28] LABS: Basophils Absolute Auto 0.04 K/mm3 (0.00-0.10); Basophils Percent Auto 0.7 % (0.0-1.0); Eosinophils Absolute Auto 0.12 K/mm3 (0.02-0.50); Eosinophils Percent Auto 2.1 % (1.0-6.0); Hematocrit 37.3 % (35.0-49.0); Hemoglobin 12.6 g/dL (12.0-15.0); Immature Granulocyte Absolute 0.02 K/mm3 (0.00-0.00); Immature Granulocyte Percent A 0.4 % (0.0-0.0); Lymphocytes Absolute Auto 1.72 K/mm3 (1.10-4.50); Lymphocytes Percent Auto 30.8 % (18.0-42.0); Mean Corpuscular HGB Conc 33.8 g/dL (32.0-36.0); Mean Corpuscular Hemoglobin 30.7 pg (27.0-31.0); Mean Corpuscular Volume 90.8 fL (78.0-102.0); Mean Platelet Volume 8.6 fl (9.2-11.8); Monocytes Absolute Auto 0.45 K/mm3 (0.10-0.90); Monocytes Percent Auto 8.1 % (2.0-11.0); Neutrophils Absolute Auto 3.2 K/mm3 (1.7-7.2); Neutrophils Percent Auto 57.9 % (50.0-70.0); Platelet Count Result 225 K/mm3 (150-420); Red Blood Count 4.11 M/mm3 (4.20-5.40); Red Cell Distribution Width 11.7 % (11.6-14.4); White Blood Count 5.6 K/mm3 (4.8-10.8)
[2022-10-11 10:01] LABS: Alanine Aminotransferase 33 U/L (14-59); Alkaline Phosphatase 98 U/L (46-116); Anion Gap 11 mmol/L (8-16); Aspartate Amino Transferase 19 U/L (15-37); Bilirubin,Total 0.6 mg/dL (0.00-1.00); Blood Urea Nitrogen 12 mg/dL (7-18); Calcium 9.2 mg/dL (8.5-10.1); Carbon Dioxide 28 mmol/L (21-32); Chloride 105 mmol/L (98-108); Estimated Glomerular Filt Rate > 60; Glucose 110 mg/dL (70-99); Osmolality Calculated 298 mOsm/kg (285-295); Potassium 4.4 mmol/L (3.5-5.1); Sodium 144 mmol/L (136-145)
[2022-10-14 05:26] LABS: CA 15-3 7 U/mL (<32)
== END 2022-10-11 09:17 | disposition home or self-care (01) ==
LOC: CHSLAB 09:19
PROVIDERS: PCP Internal Medicine; Visit Provider Internal Medicine Hematology & Oncology
DX: C50.212 Malignant neoplasm of upper-inner quadrant of left female breast (principal); Z17.0 Estrogen receptor positive status [ER+]
CPT/HCPCS: 36415; 80053; 85025; 86300

== ENCOUNTER 2023-10-10 06:09 | Outpatient (CLI) | payer OTHER, SELFPAY ==
[2023-10-10 07:11] LABS: Basophils Absolute Auto 0.06 K/mm3 (0.00-0.10); Eosinophils Absolute Auto 0.13 K/mm3 (0.02-0.50); Eosinophils Percent Auto 2.2 % (1.0-6.0); Hematocrit 37.1 % (35.0-49.0); Hemoglobin 12.6 g/dL (12.0-15.0); Immature Granulocyte Absolute 0.03 K/mm3 (0.00-0.00); Immature Granulocyte Percent A 0.5 % (0.0-0.0); Lymphocytes Percent Auto 25.8 % (18.0-42.0); Mean Corpuscular Hemoglobin 30.1 pg (27.0-31.0); Mean Corpuscular Volume 88.8 fL (78.0-102.0); Monocytes Absolute Auto 0.56 K/mm3 (0.10-0.90); Monocytes Percent Auto 9.6 % (2.0-11.0); Neutrophils Absolute Auto 3.54 K/mm3 (1.70-7.20); Neutrophils Percent Auto 60.9 % (50.0-70.0); Platelet Count Result 260 K/mm3 (150-420); Red Blood Count 4.18 M/mm3 (4.20-5.40); Red Cell Distribution Width 11.9 % (11.6-14.4); White Blood Count 5.8 K/mm3 (4.8-10.8)
[2023-10-10 07:26] LABS: Alanine Aminotransferase 29 U/L (14-59); Albumin Level 3.9 g/dL (3.4-5.0); Alkaline Phosphatase 111 U/L (46-116); Anion Gap 8 mmol/L (4-12); Aspartate Amino Transferase 18 U/L (15-37); Bilirubin,Total 0.5 mg/dL (0.00-1.00); Blood Urea Nitrogen 12 mg/dL (7-18); Calcium 8.7 mg/dL (8.5-10.1); Carbon Dioxide 28 mmol/L (21-32); Chloride 103 mmol/L (98-108); Estimated Glomerular Filt Rate > 60; Glucose 128 mg/dL (70-99); Osmolality Calculated 289 mOsm/kg (285-295); Potassium 4.1 mmol/L (3.5-5.1); Sodium 139 mmol/L (136-145); Total Protein 6.8 g/dL (6.4-8.2)
[2023-10-12 08:09] LABS: CA 15-3 7 U/mL (<32)
== END 2023-10-10 06:10 | disposition home or self-care (01) ==
PROVIDERS: PCP Internal Medicine; Visit Provider Internal Medicine Hematology & Oncology
DX: C50.212 Malignant neoplasm of upper-inner quadrant of left female breast (principal); Z17.0 Estrogen receptor positive status [ER+]
CPT/HCPCS: 36415; 80053; 85025; 86300

== ENCOUNTER 2023-10-14 08:53 | Outpatient (CLI) | payer OTHER, SELFPAY ==
--- NOTE | ~2023-10-14 | MM_ITS ---
EXAMINATION: MM screening [facility] BI w jackeline HISTORY: Screening TECHNIQUE: Craniocaudal and mediolateral oblique 3-D tomosynthesis images were obtained and synthetic 2-D images were generated. CAD analysis was submitted and interpreted. COMPARISON: Comparison to multiple prior studies sequentially, with oldest reviewed study dated 09/14. BREAST PARENCHYMAL COMPOSITION: Not dense: There are scattered areas of fibroglandular density. FINDINGS: There is distortion in the upper inner quadrant of the left breast, consistent with previou s lumpectomy site. There is no evidence of suspicious mass, calcification, or architectural distortio n to suggest malignancy in either breast. There has been no suspicious interval change. IMPRESSION: 1. No mammographic evidence of malignancy. 2. Recommend routine screening mammography in one year. BI-RADS Category 2: Benign finding(s). Reviewed, dictated and finalized at location B.
== END 2023-10-14 08:54 | disposition home or self-care (01) ==
LOC: ANHIMG 09:00
PROVIDERS: PCP Internal Medicine; Visit Provider Internal Medicine Hematology & Oncology
DX: Z12.31 Encounter for screening mammogram for malignant neoplasm of breast (principal)
CPT/HCPCS: 77063; 77067

== ENCOUNTER 2024-01-03 17:08 | Outpatient (CLI) | payer OTHER, SELFPAY | END 2024-01-03 17:09 | disposition home or self-care (01) | LOC: CHSLAB 17:10 | PROVIDERS: PCP Internal Medicine; Visit Provider Specialist | DX: L40.9 Psoriasis, unspecified (principal) | CPT/HCPCS: 87070; 87147; 87181; 87205 ==

== ENCOUNTER 2024-07-17 09:42 | Outpatient (CLI) | payer OTHER, SELFPAY ==
--- OUTSIDE RECORDS SUMMARY | 2024-07-17 10:23 | XMS_ITS | Clinical Summary ---
Author Organization [facility] Address [address] [place] [address] Care Team Providers Care Pharmacometrician Name Role Phone Nestor Courtney MD Primary Care Provider + Allergies No known active allergies Medications Cholecalciferol, Vitamin D3, 2,000 unit Capsule Take by mouth. Active Active Problems Problem Noted Date Diagnosed Date Malignant neoplasm of upper- inner quadrant of left breast in female, estrogen receptor positive 06/15/2018 Encounters Date Type Department Care Team Description 06/12/2024 External Device Data [facility] ABSTRACTION Provider, Abstract 06/12/2024 External Device Data [facility] Provider, Abstract 06/05/2024 External Device Data [facility]STRACTION Provider, Abstract from Last 3 Months Social History Tobacco Use Types Packs/Day Years Used Date Smoking Tobacco: Never Smokeless Tobacco: Never Alcohol Use Standard Drinks/Week Comments No 0 (1 standard drink = 0.6 oz pur e alcohol) Comments No Sex and Gender Information Value Date Recorded Sex Assigned at Not on file Legal Sex Female 10:15 PM CDT Gender Identity Not on file Sexual Orientation Not on file Last Filed Vital Signs Vital Sign Reading Time Taken Comments Blood Pressure 158/91 10/21/2023 8:30 AM CDT Pulse 83 10/21/2023 8:26 AM CDT Temperature 36.6 C (97.8 F) 10/21/2023 8:26 AM CDT Respiratory Rate 14 10/21/2023 8:26 AM CDT Oxygen Saturation 97% 10/21/2023 8:26 AM CDT Inhaled Oxygen Concentration - - Weight 48.1 kg (106 lb) 10/21/2023 8:26 AM CDT Height 160 cm (5' 3 ) 10/20/2022 10:00 AM CDT Body Mass Index 18.78 10/20/2022 10:00 AM CDT Plan of Treatment Upcoming Encounters Date Type Department Care Team (Late st Contact Info) Description 10/22/2024 10:00 AM CDT Office Visit [facility] Oncology and Hematology [facility] [address] [facility] [address] [place] [address] Michael Valentin MD [address] [place] [address] Health Maintenance Due Date Last Done Comments DTAP/TDAP/TD VACCINES (1 - Tdap) 1990 HEPATITIS B VACCINES (1 of 3 - 19+ 3-dose series) 1990 HPV/Cotest (21-29) 1992 CERVICAL CANCER SCREENING 2001 HPV/Cotest (30-65) 2001 PAP SMEAR 2001 COLORECTAL SCREENING 2016 Colorectal Cancer Screening 2016 FIT-DNA Q 3 years 2016 FIT/FOBT Q 1 year 2016 Flex Sig/CT Colonography Q 5 years 2016 ZOSTER VACCINE (1 of 2) 2021 INFLUENZA VACCINE (#1) 2023 BREAST CANCER SCREENING 10/13/2024 10/14/19 24, 10/11/2022, 09/22/2020, Additional history exists Procedures Procedure Name Priority Date/Time Associated Diagnosis Comments MAMMO SCREENING BILAT Routine 10/14/2023 10:35 AM CDT from Last 3 Months or Most Recently Relevant to Health Maintenance Results * MAMMO SCREENING BILAT (10/14/2023 10:35 AM CDT) Anatomical Region Laterality Modality Breast Bilateral Mammography Michael Valentin MD MAMMO ORDERABLES Final Result from Last 3 Months or Most Recently Relevant to Health Maintenance Insurance Care Teams Pharmacometrician Relationship Specialty Start Date End Date Nestor Courtney MD [address] [place] [address] PCP - General Internal Medicine 06/15/18
--- OUTSIDE RECORDS SUMMARY | 2024-07-17 10:23 | XMS_ITS | Data Portability ---
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 - ended up with lumpectomy, chemo, radiation. On Tamoxifen now. No menses since chemo 3 girls doing well. Not available 03/09/2016 15:33:38 04/21/2017 04/21/2017 obstetrician and gynaecologist exam normal. 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 Breast CA f/u with mammos at [facility] On second year of ten of Tamoxifen. No bleeding Girls doing well [age] (senior) and 16 Not available 04/21/2017 12:13:15 Plan of Treatment Reminders Order Date Submit Date Provider Last Modified By Organization Details Last Modified Time Details Appointments None recorded. Lab pap, LB + reflex to HR HPV if ASC-U 2017 018 [facility], [address], [address], [place], [address], 8 06:53:14 pap, LB + reflex to HR HPV if ASC-U - broom 2015 016 [facility], [address], [address], [place], [address], 6 04:32:47 pap, LB + reflex to HR HPV if ASC-U - broom 2014 015 [facility], [address], [address], [place], [address], 5 17:19:02 Referral None recorded. Procedures None recorded. Surgeries None recorded. Imaging MAMMO, screening, digital, bilateral 2017 018 [facility]), [address] [place] [address], [id number], 8 14:57:59 breast ultrasound, limited - left breast lump 2014 015 [facility]), [address] [place] [address], [id number], 5 19:48:09 MAMMO, diagnostic, digital, unilateral - palpable left breast lump 2014 015 [facility]), [address] [place] [address], [id number], 5 17:35:10 Medication Orders None recorded. Patient TargetsNo targets recorded. Patient Instructions Encounter Date Encounter Id Patient Instructions Last Modified By Organization Details Last Modified Time 01/23/2015 [id number] breast lumps: care instructions Not available 01/23/2015 16:31:47 Reason for Referral None Reported. Results Created Date Observation Date Name Description Value Unit Range Abnormal Flag Note LastModifiedBy Organization Detail LastModifiedTime 01/24/20 15 01/27/2015 pap, LB + refle x to HR HPV if ASC-U diagnosis: COMMEN T NEGAT OLGA LIDIA FOR INTRA EPITH ELIAL LESLOPEZ N AND MARGARITO BRISCOE . Not Available [facility] ([facility]) [address] [place], [address], 01/27/2015 17:19:02 01/24/20 15 01/27/2015 pap, LB + refle x to HR HPV if ASC-U specimen adequacy: JAYASHREE Abreu SATIS FACTO RY FOR EVALU ATION . ENDOC ERVIC AL AND/O R SQUAM OUS METAP LASTI C CELLS (ENDO CERVI JUWAN COMPO NENT) ARE PRESE NT. Not Available [facility] ([facility]) [address] [place], [address], 01/27/2015 17:19:02 01/24/20 15 01/27/2015 pap, LB + refle x to HR HPV if ASC-U clinician provided ICD10: JAYASHREE Abreu Z01.4 19 Not Available [facility] ([facility]) [address] [place], [address], 01/27/2015 17:19:02 01/24/20 15 01/27/2015 pap, LB + refle x to HR HPV if ASC-U performed by: DORIE DICKERSON (ASCP ) Not Available [facility] ([facility]) [address] [place], [address], 01/27/2015 17:19:02 01/24/20 15 01/27/2015 pap, LB + refle x to HR HPV if ASC-U . . Not Available [facility] ([facility]) [address] [place], [address], 01/27/2015 17:19:02 01/24/20 15 01/27/2015 pap, LB + refle x to HR HPV if ASC-U note: JAYASHREE Abreu THE PAP SMEAR IS A SCREE AMARILIS TEST DESIG SHELBY TO AID IN THE DETEC TION OF SID LIGNA NT AND MALIG NANT CONDI TIONS OF THE UTERI NE CERVI X. IT IS NOT A DIAGN OSTIC PROCE DURE AND SHOUL D NOT BE USED THE SOLE MEANS OF DETEC TING CERVI JUWAN CANCE R. BOTH FALSE -POSI TIVE AND FALSE -NEGA TIVE REPOR TS DO OCCUR . Not Available [facility] ([facility]) [address] [place], [address], 01/27/2015 17:19:02 01/24/20 15 01/27/2015 pap, LB + refle x to HR HPV if ASC-U test methodology: COMMEN T THIS LIQUI D BASED THINP REP(R ) PAP TEST WAS SCREE SHELBY WITH THE USE OF AN IMAGE GUIDE D SYSTMichi M. Not Available [facility] ([facility]) [address] [facility], [place], [address], 01/27/2015 17:19:02 01/24/20 15 01/27/2015 pap, LB + refle x to HR HPV if ASC-U . COMMEN T THE HPV DNA REFLE X CRITE DARCI WERE NOT MET WITH THIS SPECI MEN RESUL T THERE FORE, NO HPV TESTI NG WAS PERFO RMED. Not Available [facility] ([facility]) [address] [facility], [place], [address], 01/27/2015 17:19:02 03/09/20 16 03/11/2016 pap, IG + refle x HPV if ASC-U diagnosis: COMMEN T NEGAT OLGA LIDIA FOR INTRA EPITH ELIAL LESLOPEZ N AND MARGARITO BRISCOE . FUNGA L ORGAN ISMS MORPH OLOGI MILLY CONSI STENT WITH CAREY DA SPECI ES ARE PRESE NT. CELLU LAR REYES ES ASSOC IATED WITH INFLA MMATI ON ARE PRESE NT. Not Available [facility] ([facility]) [address] [place], [address], 03/11/2016 13:13:07 03/09/20 16 03/11/2016 pap, IG + refle x HPV if ASC-U specimen adequacy: COMMEN T SATIS FACTO RY FOR EVALU ATION . ENDOC ERVIC AL AND/O R SQUAM OUS METAP LASTI C CELLS (ENDO CERVI JUWAN COMPO NENT) ARE PRESE NT. Not Available [facility] ([facility]) [address] [place], [address], 03/11/2016 13:13:07 03/09/20 16 03/11/2016 pap, IG + refle x HPV if ASC-U clinician provided ICD10: JAYASHREE Abreu Z01.4 19 Not Available [facility] ([facility]) [address] [place], [address], 03/11/2016 13:13:07 03/09/20 16 03/11/2016 pap, IG + refle x HPV if ASC-U performed by: DORIE ROCHA (ASCP ) Not Available [facility] ([facility]) [address] [place], [address], 03/11/2016 13:13:07 03/09/20 16 03/11/2016 pap, IG + refle x HPV if ASC-U . . Not Available [facility] ([facility]) [address] [place], [address], 03/11/2016 13:13:07 03/09/20 16 03/11/2016 pap, IG + refle x HPV if ASC-U pathologist provided ICD10: JAYASHREE Abreu R87.5 Not Available [facility] ([facility]) [address] [place], [address], 03/11/2016 13:13:07 03/09/20 16 03/11/2016 pap, IG + refle x HPV if ASC-U note: JAYASHREE Abreu THE PAP SMEAR IS A SCREE AMARILIS TEST DESIG SHELBY TO AID IN THE DETEC TION OF SID LIGNA NT AND MALIG NANT CONDI TIONS OF THE UTERI NE CERVI X. IT IS NOT A DIAGN OSTIC PROCE DURE AND SHOUL D NOT BE USED THE SOLE MEANS OF DETEC TING CERVI JUWAN CANCE R. BOTH FALSE -POSI TIVE AND FALSE -NEGA TIVE REPOR TS DO OCCUR . Not Available [facility] ([facility]) [address] [place], [address], 03/11/2016 13:13:07 03/09/20 16 03/11/2016 pap, IG + refle x HPV if ASC-U test methodology: COMMEN T THIS LIQUI D BASED THINP REP(R ) PAP TEST WAS SCREE SHELBY WITH THE USE OF AN IMAGE GUIDE Dirk Schmidt Not Available [facility] ([facility]) [address] [place], [address], 03/11/2016 13:13:07 03/09/20 16 03/11/2016 pap, IG + refle x HPV if ASC-U . COMMEN T THE HPV DNA REFLE X CRITE DARCI WERE NOT MET WITH THIS SPECI MEN RESUL T THERE FORE, NO HPV TESTI NG WAS PERFO RMED. Not Available [facility] ([facility]) [address] [facility], [place], [address], 03/11/2016 13:13:07 04/21/19 18 2017 pap, IG + refle x HR HPV diagnosis: Commen t NEGAT OLGA LIDIA FOR INTRA EPITH ELIAL LESIO N AND MALIG LUIS FELIPE . REACT OLGA LIDIA CELLU LAR REYES ES AND/O R REPAI R ARE PRESE NT. FUNGA L ORGAN ISMS MORPH OLOGI MILLY CONSI STENT WITH CAREY DA SPECI ES ARE PRESE NT. Not Available [facility] ([facility]) [address] [facility], [place], [address], 04/27/2017 06:53:14 04/21/19 18 2017 pap, IG + refle x HR HPV recommendati on: Commen t Sugge st follo w up as clini milly appro priat e. Not Available [facility] ([facility]) [address] [place], [address], 04/27/2017 06:53:14 04/21/19 18 2017 pap, IG + refle x HR HPV specimen adequacy: Commen t Satis facto ry for evalu ation . Endoc ervic al and/o r squam ous metap lasti c cells (endo cervi juwan compo nent) are prese nt. Not Available [facility] ([facility]) [address] [place], [address], 04/27/2017 06:53:14 04/21/19 18 2017 pap, IG + refle x HR HPV clinician provided ICD10: Jayashree abreu Z01.4 19 Not Available [facility] ([facility]) [address] [place], [address], 04/27/2017 06:53:14 04/21/19 18 2017 pap, IG + refle x HR HPV performed by: Dorie Sotelo echjennifer logis t Not Available [facility] ([facility]) [address] [place], [address], 04/27/2017 06:53:14 04/21/19 18 2017 pap, IG + refle x HR HPV electronical ly signed by: Jayashree bailey MD, Patho logis t Not Available [facility] ([facility]) [address] [place], [address], 04/27/2017 06:53:14 04/21/19 18 2017 pap, IG + refle x HR HPV . . Not Available [facility] ([facility]) [address] [place], [address], 04/27/2017 06:53:14 04/21/19 18 2017 pap, IG + refle x HR HPV pathologist provided ICD10: Jayashree abreu R87.5 Not Available [facility] ([facility]) [address] [place], [address], 04/27/2017 06:53:14 04/21/19 18 2017 pap, IG + refle x HR HPV note: Jayashree abreu The Pap smear is a scree amarilis test desig shelby to aid in the detec tion of sid ligna nt and malig nant condi tions of the uteri ne cervi x. It is not a diagn ostic proce dure and shoul d not be used as the sole means of detec ting cervi juwan cance r. Both false -posi tive and false -nega tive repor ts do occur . Not Available [facility] ([facility]) [address] [facility], [place], [address], 04/27/2017 06:53:14 04/21/19 18 2017 pap, IG + refle x HR HPV test methodology: Commen t This liqui d based ThinP rep(R ) pap test was scremichi pérezd with the use of an image guide dirk barroso. Not Available [facility] ([facility]) [address], [place], [address], 04/27/2017 06:53:14 04/21/19 18 2017 pap, IG + refle x HR HPV . Commen t The HPV DNA refle x crite darci were not met with this speci men resul t there fore, no HPV testi ng was perfo rmed. Not Available [facility] ([facility]) [address], [place], [address], 04/27/2017 06:53:14 01/24/20 15 01/22/2015 MAMMmarly Lugo, digit al, bilat eral No observ ation record ed. [email or web address] Not Available 2014 17:12:55 01/24/20 15 01/22/2015 MAMMO marly, digit al, bilat eral No observ ation record ed. [email or web address] Not Available 2014 17:44:35 01/24/20 15 01/22/2015 MAMMmarly Lugo, digit al, bilat eral No observ ation record ed. [email or web address] Not Available 2014 09:20:23 01/24/20 15 breas t ultra sound , limit ed No observ ation record ed. [email or web address] Not Available 2014 09:20:23 02/05/20 15 02/04/2015 breas t ultra sound , limit ed No observ ation record ed. [email or web address] [address] [place], [address], 02/05/2015 10:10:08 02/05/20 15 02/04/2015 MAMMO , diagn ostic , digit al, unila teral No observ ation record ed. [email or web address] [address] [place], [address], 02/05/2015 10:09:53 02/05/20 15 02/04/2015 breas t ultra sound , limit ed No observ [facility]ion [facility] ed. [email or web address] [address] [place], [address], 02/05/2015 10:10:08 02/06/20 15 02/04/2015 MAMMO , diagn ostic , digit al, unila teral No observ ation record ed. [email or web address] [address] [place], [address], 02/05/2015 10:09:54 Result Notes None recorded. Problems Name Problem SNOMED Code Status Onset Date Resolution Date Notes Provider Name and Address Organization Details Recorded Time Breast lump [id number] Active Etta Prasad MD Attn: Accounting ,[address] [place], [address] , [facility] 01/23/2015 16:31:46 Problem Notes None recorded. Procedures Surgical History Date Name Laterality Status Provider Name and Address Organization Details Recorded Time 8 Date of Last Pap Smear completed Josephine Apple [place] - [facility] 04/27/2017 07:54:51 6 Breast Biopsy completed Josephine [place] - [facility] 03/09/2016 15:11:07 5 Most Recent Mammogram completed Josephine Apple [place] - [facility] 03/09/2016 15:10:03 Breast Surgery completed REID Sullivan - [facility] 03/09/2016 15:16:36 Imaging Results Imaging Date Name Status [facility] Details LastModified Time 01/22/2015 MAMMO, screening, digital, bilateral completed Information not available 01/23/2015 17:12:55 01/22/2015 MAMMO, screening, digital, bilateral completed Information not available 01/23/2015 17:44:35 01/22/2015 MAMMO, screening, digital, bilateral completed Information not available 01/24/2015 09:20:23 01/23/2015 breast ultrasound, limited completed Information not available 01/24/2015 09:20:23 02/04/2015 breast ultrasound, limited completed [email or web address] [address] [place], [address], 02/05/2015 10:10:08 02/04/2015 MAMMO, diagnostic, digital, unilateral completed [email or web address] [address] [place], [address], 02/05/2015 10:09:53 02/04/2015 breast ultrasound, limited completed [email or web address] [address] [place], [address], 02/05/2015 10:10:08 02/04/2015 MAMMO, diagnostic, digital, unilateral completed [email or web address] [address] [place], [address], 02/05/2015 10:09:54 Procedure Notes None recorded. Medical Equipment None Reported. Allergies No known drug allergies Medications Name Sig Start Date Stop Date Status Note LastModified by Organization Details LastModified Time ondansetron HCl 4 mg tablet active Not Available Not Available No t Available clobetasol 0.05 % topical cream active Not Available Not Availabl e Not Available prochlorperazine maleate 10 mg tablet active Not Available Not Available Not Available dexamethasone 4 mg tablet active Not Available Not Available Not Available doxycycline hyclate 100 mg tablet active Not Available Not Available Not Available tamoxifen 20 mg tablet active Not Available Not Available Not Available clindamycin phosphate 1 % topical solution active Not Available Not Avail able Not Available Sprintec (28) 0.25 mg-0.035 mg tablet one po qday : 2014 active see 5-20-1 4 ape sheet for oc order Not Available Not Available Not Available Vitals Date Recorded Body height Body mass index (BMI) Body weight Systolic blood pressure Diastolic blood pressure Provider Name and Address Organization Details Last Updated DateTime 04/21/2017 161.29 cm 31.3 kg/m2 21685.47 g 143 mm[Hg] 96 mm[Hg] Josephine loza MA [facility] 8 11:53:53 Date Recorded Body height Body mass index (BMI) Body weight Systolic blood pressure Diastolic blood pressure Provider Name and Address Organization Details Last Updated DateTime 01/23/2015 161.29 cm 28.4 kg/m2 08535.55 631 g 112 mm[Hg] 66 mm[Hg] Josephine loza MA [facility] 5 16:07:46 Date Recorded Body height Body weight Body mass index (BMI) Systolic blood pressure Diastolic blood pressure Provider Name and Address Organization Details Last Updated DateTime 03/09/2016 161.29 cm 11928.89 g 30 kg/m2 118 mm[Hg] 76 mm[Hg] Josephine loza MA [facility] 6 15:15:47 Social History Question Answer Notes LastModified by Organizat ion Details LastModified Time Tobacco Smoking Status Never Smoker Josephine Apple MA null, [facility] 12/19/2014 17:22:13 How Many Children Do You Have? 3 Information not available 12/19/2014 What Is Your Relationship Status? Information not available 12/19/2014 Sex: Unknown Functional Status None recorded. Mental Status None recorded. Family History Nothing Reported Notes:No HX. of breast CA Medical History Condition Response Coronary Artery Disease N Kidney Cyst N Blood Diseases N Hyperthyroidism N Blood disorders N Blood Transfusion N MRSA N Emphysema N Depression N COPD N Blood Clots N Pneumonia N Premature N Peripheral Arterial Disease N Edema N TIA N Headaches/Migraines N Anxiety Disorder N Obesity N Polyps N Infertility N Acid Reflux (GERD) N Hematuria N Stroke N Neck Injury N Polio N Hospital Admission other than N Neurologic Disorder N Other Sleep Disorders N Rheumatoid Arthritis N Fibromyalgia N Abdominal Aortic Aneurysm Repair N Kidney Disease N Heart Conditions N Heart Disease/Heart Problems N Hospitalizations N Brain Tumors N Acne N Skin Problems N Eating Disorder N Meningitis N Constipation N Tuberculosis N Cerebral Palsy N Myocardial Infarction N Asthma N Substance Abuse N Peripheral Vascular Disease N Vertigo N Sleep Disorder N Cirrhosis N Pulmonary Embolism N Chicken Pox N Hematologic Disease N Flomax Use Past or Present N Anxiety/Depression N Thyroid Disease N Colon Cancer N Lung Disease N Glaucoma N Developmental or Behavioral Disorders N Bipolar N Pacemaker N Diverticulitis/Diverticulosis N Orthopedic Problems N Anesthesia Complications N Orthotics N Head Injury/Concussion N Congenital Anomalies N Mitchell Bite N Chronic Kidney Disease N Endometriosis N Liver Disease N Schizophrenia N Dialysis N Speech Delay N Chronic Obstructive Pulmonary Disease N Parkinson's Disease N Thyroid Problems N GI Problems N Developmental Delay N Anemia N Multiple Sclerosis N Immune System Disorder N Colon Polyps N Heart Attack ([place]) N Diabetes N Cardiomyopathy N Blood Transfusions N Heart Problems/Murmur N Eye Trauma N Congestive Heart Failure (CHF) N Valvular Heart Disease N Hyperlipidemia N Double Vision N Abuse/Domestic Violence N Hepatitis B N Lupus N Epilepsy/Seizures N Reflux/GERD N Aneurysm N Heart Disease N Bronchitis N Pre-Eclampsia N Hypertension N Heart Failure N Other N Gout N High Blood Pressure N Atrial Fibrillation N Kidney Stones N Head Trauma/Injury N Congenital Heart Disease N Spine Problems N Gastrointestinal Disease N Lung Mass N Sinusitis N Obstructive Sleep Apnea N Muscle, Joint, or Bone Problems N Autoimmune disease N Vision or Eye Problems N Arthritis N Blood Clot N Cancer N Seasonal allergies N Leg or Foot Ulcers N Raynaud's Disease N Aortic Aneurysm N Arrhythmia N Headaches N Heart Problems N Ambloypia N Ear or Hearing Problems N Hyperparathyroidism N Migraines N Artificial Joints N Kidney or Bladder Problems N NSAID Use N Encephalitis N PTSD N Ulcers N Prostate Hypertrophy N Bleeding Disorder N AIDS/HIV N Urinary Tract Infection N Back Problems N Allergies N Atrial Flutter N GERD/Reflux N Hepatitis N Autism Spectrum Disorder (ASD) N Breast Cancer Y Hernia N Hypothyroidism N Breast Problem N Genitourinary Disease N Deep Vein Thrombosis N Varicose Veins N Cystic Fibrosis N Hearing Loss N Developmental Problems N Carotid Disease N Vitamin D Deficiency N ADHD N Bladder or Kidney Problems N High Cholesterol N [place] N Valvular Abnormalities N Psychiatric/Mental Health Condition N Organ Transplant N Foot Deformity N Allergies/Hayfever N Dyslipidemia N Hyponatremia N Diabetic Eye Disease N Osteoporosis/Osteopenia N Back Pain N Proteinuria N Mental Illness N Neurological Problems N Ovarian Cancer N Bedwetting N Seizures/Epilepsy N Kidney Failure N Ocular trauma N Diverticulitis N Dementia N Sleep Apnea N Mental Problems N Warfarin Management N Osteoporosis N Gynecological History Statement/Question Response Abnormal Pap N Menses Monthly Y Date of Last Pap Smear 04/21/2017 Current Control Method None Most Recent Mammogram 02/04/2015 LMP Definite Desired Control Method None Obstetrics History GPAL:G 3 P 3 0 0 3 Type Value Full Term 3 Living 3 Total 3 Past Encounters Encounter ID Performer Location Encounter Start Date Encounter Closed Date Diagnosis/Indication Diagnosis SNOMED-CT Code Diagnosis ICD10 Code Diagnosis Note [id number] MD Deonte Guillen ([facility]) [address] [place] [address] 01/23/2015 15:12:10 01/23/2015 16:37:53 Gynecologic examination 03588034 Z01.419 Breast lump [id number] [id number] MD Deonte Guillen ([facility]) [address] [place] [address] 03/09/2016 14:56:15 03/09/2016 15:43:40 Gynecologic examination 16813328 Z01.419 History of malignant neoplasm of breast 255325787 Z85.3 [id number] MD Deonte Guillen ([facility]) [address] [facility] [address] [place] [address] 04/21/2017 11:44:39 04/21/2017 14:57:58 Body mass index 30+ - obesity 914460101 Z68.31 Gynecologi c examination 47713821 Z01.419 History of malignant neoplasm of breast 596480461 Z85.3 Health Concerns Section Related Observation LastModified by Organization Detai ls LastModified Time None Recorded Concern Status LastModified by Organization Details LastModified Time None Recorded Advance Directives Directive None Recorded Payers Encounter Date Sequence Insurance Name Policy Number Policy Hickman Covered Member ID Hickman Member ID Guarantor Name 03/09/[address] [facility] [id number] Asha Coelho [id number] Asha Rochaorf 04/21/2017 1 [facility] [id number] Asha Rossndorf [id number] Asha Coelho Notes Date Note Type Note Provider Name and Address Organization Details Recorded Time 03/09/2016 text/html Annual GYNReport ed bypatient.Menstrua l cycle:Normal menses Urinary symptoms:No hematuria; No incontinence Vulva:No genital lesion Vagina:Normal vaginal discharge Breast:left breast lumpectomy last year Sexual complaints:No sexual complaints; No pain during intercourse; Normal libido Menopausal Symptoms:No menopausal symptoms; Normal vaginal lubrication Psychological symptoms:No depression; No anxiety; No PMDD Etta Prasad MD Attn: Accounting,[address] [place], [address], [facility] 03/09/2016 15:33:58 04/21/2017 text/html Annual GYNReport ed bypatient.Menstrua l cycle:Normal menses Urinary symptoms:No hematuria; No incontinence Vulva:No genital lesion Vagina:Normal vaginal discharge Breast:left breast lumpectomy last year Sexual complaints:No sexual complaints; No pain during intercourse; Normal libido Menopausal Symptoms:No menopausal symptoms; Normal vaginal lubrication Psychological symptoms:No depression; No anxiety; No PMDD Etta Prasad MD Attn: Accounting[address] [place], [address], [facility] 04/21/2017 12:13:30 OBGyn Episode Ob Episode Information Episode Created Date Number of Fetuses Patient Bloodtype Patient rh Status Prepregnancy Weight lbs Domestic Partner Domestic Partner Phone Father Name Debridging Machine Operator Status 12/20/19 15 1 CLOSED Fetus Data First Name Last Name Admitted to NICU Weight (g) Sex Living Outcome Pediatric Complications Fetus ID Race Codes Race Delivery Type 4082.32 8 F Full Term [id number] Vaginal Ton Calculation Initial Ton Date Initial Exam Date Initial Exam Provider Initial Ultrasound Date Last Menstrual Period Date Ultra Sound Weeks Gestation 0 Eighteen To Twenty Week Ton Update Ultra Sound Date Fundal Height At Umbil Quickening Date Ultra Sound Latest Weeks Gestation Final Ton Confirmed By Final Ton Confirmed Date Final Ton Date Ultra Sound Latest Days Gestation 0 0 Menstrual History Last Menstrual Date Menses Monthly On Bcp Conception Prior Menses Frequency Hcg Plus Date Menarche Onset Age Delivery Information Delivery Date Delivery Type Labor Anesthesia Weeks Gestation Incision Type Labor Labor Length Hrs Delivered By Post Complications Tubal Sterilization Discharge Date Comments 0 None 40 3 Discharge Information Feeding Method Contraceptive Method Maternal HG B and HCT Levels Ob Episode Information Episode Created Date Number of Fetuses Patient Bloodtype Patient rh Status Prepregnancy Weight lbs Domestic Partner Domestic Partner Phone Father Name Debridging Machine Operator Status 12/20/19 15 1 CLOSED Fetus Data First Name Last Name Admitted to NICU Weight (g) Sex Living Outcome Pediatric Complications Fetus ID Race Codes Race Delivery Type [id number] F Full Term [id number] Vaginal Ton Calculation Initial Ton Date Initial Exam Date Initial Exam Provider Initial Ultrasound Date Last Menstrual Period Date Ultra Sound Weeks Gestation 0 Eighteen To Twenty Week Ton Update Ultra Sound Date Fundal Height At Umbil Quickening Date Ultra Sound Latest Weeks Gestation Final Ton Confirmed By Final Ton Confirmed Date Final Ton Date Ultra Sound Latest Days Gestation 0 0 Menstrual History Last Menstrual Date Menses Monthly On Bcp Conception Prior Menses Frequency Hcg Plus Date Menarche Onset Age Delivery Information Delivery Date Delivery Type Labor Anesthesia Weeks Gestation Incision Type Labor Labor Length Hrs Delivered By Post Complications Tubal Sterilization Discharge Date Comments 7 None 40 8 Discharge Information Feeding Method Contraceptive Method Maternal HG B and HCT Levels Ob Episode Information Episode Created Date Number of Fetuses Patient Bloodtype Patient rh Status Prepregnancy Weight lbs Domestic Partner Domestic Partner Phone Father Name Debridging Machine Operator Status 12/20/19 15 1 CLOSED Fetus Data First Name Last Name Admitted to NICU Weight (g) Sex Living Outcome Pediatric Complications Fetus ID Race Codes Race Delivery Type [id number] F [id number] Vaginal Ton Calculation Initial Ton Date Initial Exam Date Initial Exam Provider Initial Ultrasound Date Last Menstrual Period Date Ultra Sound Weeks Gestation 0 Eighteen To Twenty Week Ton Update Ultra Sound Date Fundal Height At Umbil Quickening Date Ultra Sound Latest Weeks Gestation Final Ton Confirmed By Final Ton Confirmed Date Final Ton Date Ultra Sound Latest Days Gestation 0 0 Menstrual History Last Menstrual Date Menses Monthly On Bcp Conception Prior Menses Frequency Hcg Plus Date Menarche Onset Age Delivery Information Delivery Date Delivery Type Labor Anesthesia Weeks Gestation Incision Type Labor Labor Length Hrs Delivered By Post Complications Tubal Sterilization Discharge Date Comments 2 DEH Discharge Information Feeding Method Contraceptive Method Maternal HG B and HCT Levels
== END 2024-07-17 09:43 | disposition home or self-care (01) ==
LOC: CHSLAB 09:44
PROVIDERS: PCP Internal Medicine; Visit Provider Specialist
DX: L01.00 Impetigo, unspecified (principal)
CPT/HCPCS: 87070; 87181; 87205

== ENCOUNTER 2024-10-15 08:17 | Outpatient (CLI) | payer OTHER, SELFPAY ==
--- NOTE | ~2024-10-15 | MM_ITS ---
EXAMINATION: MM screening fuad BI w jackeline HISTORY: Screening TECHNIQUE: Craniocaudal and mediolateral oblique 3-D tomosynthesis images were obtained and synthetic 2-D images were generated. CAD analysis was submitted and interpreted. COMPARISON: Comparison to multiple prior studies sequentially, with oldest reviewed study dated 09/18. BREAST PARENCHYMAL COMPOSITION: Not dense: There are scattered areas of fibroglandular density. FINDINGS: There is no evidence of suspicious mass, calcification, or architectural distortion to sugg est malignancy in either breast. There has been no suspicious interval change. IMPRESSION: 1. No mammographic evidence of malignancy. 2. Recommend routine screening mammography in one year. BI-RADS Category 1: Negative Reviewed, dictated and finalized at location B.
--- OUTSIDE RECORDS SUMMARY | 2024-10-15 08:23 | XMS_ITS | Clinical Summary ---
Author Organization [facility] Address [address] [place] [address] Care Team Providers Care Sap Plant Maintenance Consultant Name Role Phone Nestor Courtney MD Primary Care Provider + Allergies No known active allergies Medications Cholecalciferol, Vitamin D3, 2,000 unit Capsule Take by mouth. Active Active Problems Problem Noted Date Diagnosed Date Malignant neoplasm of upper- inner quadrant of left breast in female, estrogen receptor positive 06/15/2018 Social History Tobacco Use Types Packs/Day Years [...] 8:26 AM CDT Height 160 cm (5' 3) 10/20/2022 10:00 AM CDT Body Mass Index 18.78 10/20/2022 10:00 AM CDT Plan of Treatment Upcoming Encounters Date Type Department Care Team (Late st Contact Info) Description 10/22/2024 10:00 AM CDT Office Visit [facility] [place] Oncology and Hematology - [place] [address] [facility] [address] [place] [address] Michael Valentin MD [address] [place] [address] Health Maintenance Due Date Last [...] 2016 ZOSTER VACCINE (1 of 2) 2021 BREAST CANCER SCREENING 10/13/2024 10/14/19 24, 10/11/2022, 09/22/2020, Additional history exists INFLUENZA VACCINE (#1) 2024 Procedures Procedure Name Priority Date/Time Associated Diagnosis Comments MAMMO SCREENING BILAT Routine 10/14/2023 10:35 AM CDT from Last 3 Months or Most Recently Relevant to Health Maintenance Results * MAMMO SCREENING BILAT (10/14/2023 10:35 AM CDT) Anatomical Region Laterality Modality Breast Bilateral Mammography us Michael Valentin MD MAMMO ORDERABLES Final Result from Last 3 Months or Most Recently Relevant to Health Maintenance [place] [address] [place] [address] OPTIONS PPO [id number] Care Teams Sap Plant Maintenance Consultant Relationship Specialty Start Date End Date Nestor Courtney MD [address] [place] [id number] PCP - General Internal Medicine 06/15/18
--- OUTSIDE RECORDS SUMMARY | 2024-10-15 08:23 | XMS_ITS | Clinical Summary ---
Author Organization [facility] Address [address] [place] [address] Phone Care Team Providers Care Microstrategy Reports Developer Name Role Phone Nestor Courtney MD Primary Care Provider [phone] Harmeet Mayorga MD Unavailable [phone] Aft, Evy Rousseau MD Unavailable [phone] Dane Arthur MD Unavailable Chelle Fam MD Unavailable Unavailable Allergies No known active allergies Medications tamoxifen citrate 20 MG Tablet Take 20 mg by mouth daily. 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 Oncotype result was 25, in the intermediate-risk category. Her surgical procedure was a lumpectomy and sentinel lymph node dissection. She received adjuvant chemotherapy, 4 cycles of TC, from 04/16/2015 thru 06/18/2015. She completed radiotherapy to her left breast and clavicular region on 08/18/2015. She was then placed on Tamoxifen. History of therapeutic radiation 09/25/2015 Resolved Problems Problem Noted Date Diagnosed Date Resolved Date Cancer of left breast, stage 2 07/07/2015 09/25/2015 Cancer Staging:Clinical stage from 06/25/2015:Stage IIA(T2, N0, cM0) - Signed by Harmeet Mayorga MD on 07/07/2015 Pathologic:Stage IIB(T2, N1a, cM0) - Signed by Harmeet Mayorga MD on 07/07/2015 Overview (07/07/2015): [id number], UIQ of left breast Family History Medical History Relation Name Comments No Known Problems Brother Hypertension Father Hypertension Mother Breast Cancer Paternal Aunt Relation Name Status Comments Brother Father Alive Mother Alive Paternal Aunt Alive Social History Tobacco Use Types Packs/Day Years Used Date Smoking Tobacco: Never Alcohol Use Standard Drinks/Week Comments Yes 0 (1 standard drink = 0.6 oz pur e alcohol) Light social. Sexually Active Control Partners Comments Yes Male Currently not u sing any any BCP. Comments No Sex and Gender Information Value Date Recorded Sex Assigned at Not on file Legal Sex Female 11:05 PM CDT Gender Identity Not on file Sexual Orientation Not on file Last Filed Vital Signs Vital Sign Reading Time Taken Comments Blood Pressure 122/76 03/31/2016 3:03 PM HEADLINE WRITER Pulse 76 03/31/2016 3:03 PM HEADLINE WRITER Temperature 36.5 C (97.7 F) 03/31/2016 3:03 PM HEADLINE WRITER Respiratory Rate 16 03/31/2016 3:03 PM HEADLINE WRITER Oxygen Saturation 97% 03/31/2016 3:03 PM HEADLINE WRITER Inhaled Oxygen Concentration - - Weight 78.6 kg (173 lb 4.8 oz) 03/31/2016 3:03 P M HEADLINE WRITER Height 162.6 cm (5' 4) 03/31/2016 3:03 PM HEADLINE WRITER Body Mass Index 29.75 03/31/2016 3:03 PM HEADLINE WRITER Plan of Treatment Health Maintenance Due Date Last Done Comments Hepatitis C Virus (HCV) Screening 1971 TdaP Immunization 1971 SARS-COV-2 Immunization (#1) 1976 Hepatitis B Immunization (1 of 3 - 19+ 3-dose series) 1990 Zoster Immunization (1 of 2) 1990 Pap Smear 1992 Cervical Cancer Screening (CCS) 2001 HPV/Cotest 2001 Mammogram 01/23/2016 01/22/2015 Cologuard 2016 Colonoscopy 2016 Colorectal Cancer Screening 2016 Immunochemical Fecal Occult Blood 2016 Pneumococcal Immunization (5 0+ years) (1 of 1 - PCV) 2021 Influenza Immunization (#1) 2024 Respiratory Syncytial Virus (RSV) Immunization (Adult) (1 - 1-dose 75+ series) 2046 Discussion re Starting/Frequency of Mammograms Discontinued 08/25/2015, 02/04/2015, 01/22/2015 Human Papillomavirus (HPV) Immunization Aged Out No longer eligible based on patient's age to complete this topic Meningococcal Immunization (ACWY) Aged Out No longer eligible based on patient's age to complete this topic Rotavirus Immunization Aged Out No lo nger eligible based on patient's age to complete this topic Procedures Procedure Name Priority Date/Time Associated Diagnosis Comments IRSI DIAG RIGHT UNILATERAL DI GITAL W CAD W SHAWN Routine 08/25/2015 IRIS DIAG BILATERAL DIGITAL W CAD Routine 01/22/2015 from Last 3 Months or Most Recently Relevant to Health Maintenance Results * IRIS DIAG RIGHT UNILATERAL DIGITAL W CAD W SHAWN (08/25/2015) Anatomical Region Laterality Modality breast Right Other us Not On File Provider IMG MAMMO ORDERABLES Final Result * IRIS DIAG BILATERAL DIGITAL W CAD (01/22/2015) Anatomical Region Laterality Modality breast Bilateral Other us Dane Arthur MD IMG MAMMO ORDERABLES F inal Result from Last 3 Months or Most Recently Relevant to Health Maintenance Care Teams Microstrategy Reports Developer Relationship Specialty Start Date End Date Nestor Courtney MD [address] [place] [address] PCP - General Family Medicine 06/12/15 Harmeet Mayorga MD [address] [place] [address] Consulting Physician Radiation Oncology 06/25/15 Aft, Evy Rousseau MD [address] [place] [address] Consulting Physician General Surgery 06/25/15 Dane Arthur MD [address] [place] [address] Consulting Physician Obstetrics & Gynecology 06/25/15 Chelle Fam MD [address] [place] [address] Consulting Physician Oncology 09/25/15
== END 2024-10-15 08:18 | disposition home or self-care (01) ==
LOC: ANHIMG 08:20
PROVIDERS: PCP Internal Medicine; Visit Provider Internal Medicine Hematology & Oncology
DX: Z12.31 Encounter for screening mammogram for malignant neoplasm of breast (principal)
CPT/HCPCS: 77063; 77067

== ENCOUNTER 2024-10-15 18:52 | Outpatient (CLI) | payer OTHER, SELFPAY ==
--- OUTSIDE RECORDS SUMMARY | 2024-10-15 18:56 | XMS_ITS | Clinical Summary ---
Author Organization [facility] Address [address] [place] [address] Care Team Providers Care Art Librarian Name Role Phone Nestor Courtney MD Primary [...] Description 10/22/2024 10:00 AM CDT Office Visit [facility] Oncology and Hematology - [place] [address] [place] [address] Michael Valentin MD [address] [place] [address] Health Maintenance Due Date Last [...] Most Recently Relevant to Health Maintenance [place] [address] [place] [address] OPTIONS PPO [id number] Care Teams Art Librarian Relationship Specialty Start Date End Date Nestor Courtney MD [address] [place] [phone] PCP - General Internal Medicine 06/15/18
--- OUTSIDE RECORDS SUMMARY | 2024-10-15 18:56 | XMS_ITS | Clinical Summary ---
Author Organization [facility] Address [address] [place] [address] Phone Care Team Providers Care Army Officer Name Role Phone Nestor Courtney MD Primary Care Provider Harmeet Mayorga MD Unavailable [phone] Aft, Evy Rousseau MD Unavailable [phone] Dane Arthur MD Unavailable Chelle Fam MD Unavailable Unavailable Allergies No known active allergies Medications tamoxifen citrate 20 MG Tablet Take 20 mg by mouth daily. Active Active Problems Problem Noted Date Diagnosed Date History of left breast cancer 09/25/2015 Overview (03/31/2016): Pathological Stage IIB (T2N1M0) invasive ductal carcinoma of the left breast, ER/MD positive and HER-2 negative by FISH. Oncotype [...] Harmeet Mayorga MD on 07/07/2015 Overview (07/07/2015): [id number], UIQ of left breast Family History Medical [...] Comments Blood Pressure 122/76 03/31/2016 3:03 PM CONGRESSIONAL AIDE Pulse 76 03/31/2016 3:03 PM CONGRESSIONAL AIDE Temperature 36.5 C (97.7 F) 03/31/2016 3:03 PM CONGRESSIONAL AIDE Respiratory Rate 16 03/31/2016 3:03 PM CONGRESSIONAL AIDE Oxygen Saturation 97% 03/31/2016 3:03 PM CONGRESSIONAL AIDE Inhaled Oxygen Concentration - - Weight 78.6 kg (173 lb 4.8 oz) 03/31/2016 3:03 P M CONGRESSIONAL AIDE Height 162.6 cm (5' 4) 03/31/2016 3:03 PM CONGRESSIONAL AIDE Body Mass Index 29.75 03/31/2016 3:03 PM CONGRESSIONAL AIDE Plan of Treatment Health Maintenance Due Date [...] Procedure Name Priority Date/Time Associated Diagnosis Comments IRIS DIAG RIGHT UNILATERAL DI GITAL W CAD [...] Recently Relevant to Health Maintenance Care Teams Army Officer Relationship Specialty Start Date End Date Nestor Courtney MD [address] [place] [address] PCP - General Family Medicine 06/12/15 Harmeet Mayorga MD [address] [place] [address] Consulting Physician Radiation Oncology 06/25/15 Aft, Evy Rousseau MD [address] [place] [address] Consulting Physician General Surgery 06/25/15 Dane Arthur MD [address] [place] [address] Consulting Physician Obstetrics & Gynecology 06/25/15 Chelle Fam MD [address] [place] [address] Consulting Physician Oncology 09/25/15
--- OUTSIDE RECORDS SUMMARY | 2024-10-15 18:56 | XMS_ITS | Data Portability ---
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 - ended up with lumpectomy, chemo, radiation. On Tamoxifen now. No menses since chemo 3 girls doing well. 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 Breast CA f/u with mammos at [facility] On second year of ten of Tamoxifen. No bleeding Girls doing well [age] (senior) and 16 Not available 04/21/2017 12:13:15 Plan of Treatment Reminders Order Date Submit Date Provider Last Modified By Organization Details Last Modified Time Details Appointments None recorded. Lab pap, LB + reflex to HR HPV if ASC-U 2017 018 L[facility]ANDRO [facility], [address] [facility] [address], [place], [address], 8 06:53:14 pap, LB + reflex to HR HPV if ASC-U - broom 2015 016 [facility], [address] [facility], [address], [place], [address], 6 04:32:47 pap, LB + reflex to HR HPV if ASC-U - broom 2014 015 MILO [facility], [address] [facility], [address], [place], [address], 5 17:19:02 Referral None recorded. Procedures None recorded. Surgeries None recorded. Imaging MAMMO, screening, digital, bilateral 2017 018 [facility]), [address] [place] [address], [address], 8 14:57:59 breast ultrasound, limited - left breast lump 2014 015 [facility]), [address] [place] [address], [address], 5 19:48:09 MAMMO, diagnostic, digital, unilateral - palpable left breast lump 2014 015 [facility]), [address] [place] [address], [address], 5 17:35:10 Medication Orders None recorded. Patient TargetsNo targets recorded. Patient Instructions Encounter Date Encounter Id Patient Instructions Last Modified By Organization Details Last Modified Time 01/23/2015 [id number] breast lumps: care instructions Not available 01/23/2015 16:31:47 Reason for Referral None Reported. Results Created Date Observation Date Name Description Value Unit Range Abnormal Flag Note LastModifiedBy Organization Detail LastModifiedTime 01/24/20 15 01/27/2015 pap, LB + refle x to HR HPV if ASC-U diagnosis: COMMEN T NEGAT OLGA LIDIA FOR INTRA EPITH ELIAL JASSI Chavez AND MARGARITO BRISCOE . Not Available [facility] ([facility]) [address] [facility], [place], [address], 01/27/2015 17:19:02 01/24/20 15 01/27/2015 pap, LB + refle x to HR HPV if ASC-U specimen adequacy: JAYASHREE Abreu SATIS FACTO RY FOR EVALU ATION . ENDOC ERVIC AL AND/O R SQUAM OUS METAP LASTI C CELLS (ENDO CERVI JUWNA COMPO NENT) ARE PRESE NT. Not Available [facility] ([facility]) [address] [place], [address], 01/27/2015 17:19:02 01/24/20 15 01/27/2015 pap, LB + refle x to HR HPV if ASC-U clinician provided ICD10: JAYASHREE Abreu Z01.4 19 Not Available [facility] ([facility]) [address] [place], [address], 01/27/2015 17:19:02 01/24/20 15 01/27/2015 pap, LB + refle x to HR HPV if ASC-U performed by: DORIE DICKERSON (ASCP ) Not Available [facility] ([facility]) [address] [place], [address], 01/27/2015 17:19:02 01/24/20 15 01/27/2015 pap, LB + refle x to HR HPV if ASC-U . . Not Available [facility] ([facility]) [address] [place], [address], 01/27/2015 17:19:02 01/24/20 15 01/27/2015 pap, LB [...] TS DO OCCUR . Not Available [facility] ([facility]) [address] [facility] [place], [place], [address], 01/27/2015 17:19:02 01/24/20 15 01/27/2015 pap, LB + refle x to HR HPV if ASC-U test methodology: COMMEN T THIS LIQUI D BASED THINP REP(R ) PAP TEST WAS SCREE SHELBY WITH THE USE OF AN IMAGE GUIDE D SYSTE M. Not Available [facility] ([facility]) [address] [facility] [place], [place], [address], 01/27/2015 17:19:02 01/24/20 15 01/27/2015 pap, LB + refle x to HR HPV if ASC-U . COMMEN T THE HPV DNA REFLE X CRITE DARCI WERE NOT MET WITH THIS SPECI MEN RESUL T THERE FORE, NO HPV TESTI NG WAS PERFO RMED. Not Available [facility] ([facility]) [address] [facility] [place], [place], [address], 01/27/2015 17:19:02 03/09/20 16 03/11/2016 pap, IG + refle x HPV if ASC-U diagnosis: COMMEN T NEGAT OLGA LIDIA FOR INTRA EPITH ELIAL LESIO N AND MARGARITO BRISCOE . FUNGA L ORGAN ISMS MORPH OLOGI MILLY CONSI STENT WITH CAREY DA SPECI ES ARE PRESE NT. CELLU LAR REYES ES ASSOC IATED WITH INFLA MMATI ON ARE PRESE NT. Not Available [facility] ([facility]) [address] [facility], [place], [address], 03/11/2016 13:13:07 03/09/20 16 03/11/2016 pap, IG + refle x HPV if ASC-U specimen adequacy: COMMEN T SATIS FACTO RY FOR EVALU ATION . ENDOC ERVIC AL AND/O R SQUAM OUS METAP LASTI C CELLS (ENDO CERVI JUWAN COMPO NENT) ARE PRESE NT. Not Available [facility] ([facility]) [address] [place], [address], 03/11/2016 13:13:07 03/09/20 16 03/11/2016 pap, IG + refle x HPV if ASC-U clinician provided ICD10: JAYASHREE Abreu Z01.4 19 Not Available [facility] ([facility]) [address] [place], [address], 03/11/2016 13:13:07 03/09/20 16 03/11/2016 pap, IG + refle x HPV if ASC-U performed by: DORIE ROCHA (ASCP ) Not Available [facility] ([facility]) [address] [place], [address], 03/11/2016 13:13:07 03/09/20 16 03/11/2016 pap, IG + refle x HPV if ASC-U . . Not Available [facility] ([facility]) [address] [place], [address], 03/11/2016 13:13:07 03/09/20 16 03/11/2016 pap, IG + refle x HPV if ASC-U pathologist provided ICD10: JAYASHREE Abreu R87.5 Not Available [facility] ([facility]) [address] [place], [address], 03/11/2016 13:13:07 03/09/20 16 03/11/2016 pap, IG [...] TS DO OCCUR . Not Available [facility] ([facility]) [address] [place], [address], 03/11/2016 13:13:07 03/09/20 16 03/11/2016 pap, IG + refle x HPV if ASC-U test methodology: COMMEN T THIS LIQUI D BASED THINP REP(R ) PAP TEST WAS SCREE SHELBY WITH THE USE OF AN IMAGE GUIDE Dirk Barroso. Not Available [facility] ([facility]) [address] [facility] [place], [place], [address], 03/11/2016 13:13:07 03/09/20 16 03/11/2016 pap, IG + refle x HPV if ASC-U . COMMEN T THE HPV DNA REFLE X CRITE DARCI WERE NOT MET WITH THIS SPECI MEN RESUL T THERE FORE, NO HPV TESTI NG WAS PERFO RMED. Not Available [facility] ([facility]) [address] [facility] [place], [place], [address], 03/11/2016 13:13:07 04/21/19 18 2017 pap, IG + refle x HR HPV diagnosis: Commen t NEGAT OLGA LIDIA FOR INTRA EPITH ELIAL LESIO N AND MALCARRIE RUIZCY . REACT OLGA LIDIA CELLU LAR REYES ES AND/O R REPAI R ARE PRESE NT. FUNGA L ORGAN ISMS MORPH OLOGI MILLY CONSI STENT WITH CAREY DA SPECI ES ARE PRESE NT. Not Available [facility] ([facility]) [address] [facility] [place], [place], [address], 04/27/2017 06:53:14 04/21/19 18 2017 pap, IG + refle x HR HPV recommendati on: Commen t Sugge st follo w up as clini milly appro priat e. Not Available [facility] ([facility]) [address] [facility] [place], [place], [address], 04/27/2017 06:53:14 04/21/19 18 2017 pap, IG + refle x HR HPV specimen adequacy: Commen t Satis facto ry for evalu ation . Endoc ervic al and/o r squam ous metap lasti c cells (endo cervi juwan compo nent) are prese nt. Not Available [facility] ([facility]) [address] [place], [address], 04/27/2017 06:53:14 04/21/19 18 2017 pap, IG + refle x HR HPV clinician provided ICD10: Jayashree abreu Z01.4 19 Not Available [facility] ([facility]) [address] [place], [address], 04/27/2017 06:53:14 04/21/19 18 2017 pap, IG + refle x HR HPV performed by: Jayashree Lozano , Dorie abreu Not Available [facility] ([facility]) [address] [place], [address], 04/27/2017 06:53:14 04/21/19 18 2017 pap, IG + refle x HR HPV electronical ly signed by: Jayashree bailey MD, Patho logis t Not Available [facility] ([facility]) [address] [place], [address], 04/27/2017 06:53:14 04/21/19 18 2017 pap, IG + refle x HR HPV . . Not Available [facility] ([facility]) [address] [place], [address], 04/27/2017 06:53:14 04/21/19 18 2017 pap, IG + refle x HR HPV pathologist provided ICD10: Jayashree abreu R87.5 Not Available [facility] ([facility]) [address] [place], [address], 04/27/2017 06:53:14 04/21/19 18 2017 pap, IG [...] ts do occur . Not Available [facility] ([facility]) [address] [facility] [place], [place], [address], 04/27/2017 06:53:14 04/21/19 18 2017 pap, IG + refle x HR HPV test methodology: Commen t This liqui d based ThinP rep(R ) pap test was scree shelby with the use of an image guide dirk barroso. Not Available [facility] ([facility]) [address] [place], [address], 04/27/2017 06:53:14 04/21/19 18 2017 pap, IG + refle x HR HPV . Commen t The HPV DNA refle x crite darci were not met with this speci men resul t there fore, no HPV testi ng was perfo rmed. Not Available [facility] ([facility]) [address] [facility] [place], [place], [address], 04/27/2017 06:53:14 01/24/20 15 01/22/2015 MAMMmarly Lugo, digit al, bilat eral No observ ation record ed. [email or web address] Not Available 2014 17:12:55 01/24/20 15 01/22/2015 MAMMmarly Lugo, digit al, [...] ed No observ ation record ed. [email or web address] [address] [place], [address], 02/05/2015 10:10:08 02/05/20 15 02/04/2015 MAMMO , diagn ostic , digit al, unila teral No observ ation record ed. [email or web address] [address] [place], [address], 02/05/2015 10:09:53 02/05/20 15 02/04/2015 breas t ultra sound , limit ed No observ ation record ed. [email or web address] [address] [place], [address], 02/05/2015 10:10:08 02/06/20 15 02/04/2015 MAMMO , diagn ostic , digit al, unila teral No observ ation record ed. [email or web address] [address] [place], [address], 02/05/2015 10:09:54 Result Notes None recorded. Problems Name Problem SNOMED Code Status Onset Date Resolution Date Notes Provider Name and Address Organization Details Recorded Time Breast lump 12809059 Active Etta Prasad MD Attn: Accounting ,[address] [place], [address] , [facility] 01/23/2015 16:31:46 Problem Notes None recorded. Procedures Surgical History Date Name Laterality Status Provider Name and Address Organization Details Recorded Time 8 Date of Last Pap Smear completed REID Sullivan - [facility] 04/27/2017 07:54:51 6 Breast Biopsy completed REID Sullivan - [facility] 03/09/2016 15:11:07 5 Most Recent Mammogram completed REID Sullivan - [facility] 03/09/2016 15:10:03 Breast Surgery completed REID Sullivan [facility] 03/09/2016 15:16:36 Imaging Results None recorded. Procedure Notes None recorded. Medical Equipment None [...] Body mass index (BMI) Body weight Systolic And Diastolic Provider Name and Address Organization Details Last Updated DateTime 04/21/2017 161.29 cm 31.3 kg/m2 82530.47 g 143/96 mm[Hg] Josephine Apple MA [facility] 04/21/2017 11:53:53 Date Recorded Body height Body mass index (BMI) Body weight Systolic And Diastolic Provider Name and Address Organization Details Last Updated DateTime 01/23/2015 161.29 cm 28.4 kg/m2 76952.556 31 g 112/66 mm[Hg] Josephine Apple MA [facility] 01/23/2015 16:07:46 Date Recorded Body height Body weight Body mass index (BMI) Systolic And Diastolic Provider Name and Address Organization Details Last Updated DateTime 03/09/2016 161.29 cm 19873.89 g 30 kg/m2 118/76 mm[Hg] Josephine Apple MA [facility] 03/09/2016 15:15:47 Social History Question Answer Notes LastModified by Organizat ion Details LastModified Time Tobacco Smoking Status Never Smoker Josephine Apple MA null, [facility] 12/19/2014 17:22:13 How Many Children Do You Have? 3 Information not available 12/19/2014 What Is Your Relationship Status? Information not available 12/19/2014 Sex: Unknown Functional Status None recorded. Mental Status None recorded. Family History Nothing Reported Notes:No HX. of breast CA Medical History Condition Response Coronary Artery Disease N Kidney Cyst N Blood Diseases N Hyperthyroidism N Blood Transfusion N MRSA N Blood disorders N Emphysema N Blood Clots N COPD N Depression N Pneumonia N Premature N Peripheral Arterial Disease N Edema N TIA N Headaches/Migraines N Anxiety Disorder N Obesity N Infertility N Polyps N Acid Reflux (GERD) N Hematuria N [...] Disorder N Colon Polyps N Heart Attack ([place]) N Diabetes N Cardiomyopathy N Blood Transfusions [...] SNOMED-CT Code Diagnosis ICD10 Code Diagnosis Note [id number] [place] [address] [address] [facility] [place] [address] 01/23/2015 15:12:10 01/23/2015 16:37:53 Gynecologic examination 23538173 Z01.419 Breast lump 38458935 N63 [id number] MD Deonte Guillen ([place] [address]) [address] [facility] [address] [place] [address] 03/09/2016 14:56:15 03/09/2016 15:43:40 Gynecologic examination 82547750 Z01.419 History of malignant neoplasm of breast 252801722 Z85.3 [id number] MD Deonte Guillen ([place] [address]) [address] [facility] [address] [place] [address] 04/21/2017 11:44:39 04/21/2017 14:57:58 Body mass index 30+ - obesity 625417495 Z68.31 Gynecologi c examination 87741725 Z01.419 History of malignant neoplasm of breast 567133159 Z85.3 Health Concerns Section Related Observation LastModified by Organization Detai ls LastModified Time None Recorded Concern Status LastModified by Organization Details LastModified Time None Recorded Advance Directives Directive None Recorded Payers Insurance Date Sequence Insurance Name Policy Number Policy Hickman Covered Member ID Hickman Member ID Guarantor Name 04/19/2017 1 [facility] [id number] Asha Rossndorf [id number] Asha Rossndorf 01/23/2015 1 [facility] [employer] (PPO) [id number] Asha Rochaorf [id number] Asha Rossndorf 07/18/2018 1 [facility] [id number] Asha Rossndorf [id number] Asha Rossndorf Notes Date Note Type Note Provider Name and Address Organization Details Recorded Time 03/09/2016 text/html Annual GYNReport ed bypatient.Menstrua l cycle:Normal menses Urinary symptoms:No hematuria; No incontinence Vulva:No genital lesion Vagina:Normal vaginal discharge Breast:left breast lumpectomy last year Sexual complaints:No sexual complaints; No pain during intercourse; Normal libido Menopausal Symptoms:No menopausal symptoms; Normal vaginal lubrication Psychological symptoms:No depression; No anxiety; No PMDD Etta Prasda MD Attn: Accounting[address] [place], [address], [facility] 03/09/2016 15:33:58 04/21/2017 text/html Annual GYNReport ed bypatient.Menstrua l cycle:Normal menses Urinary symptoms:No hematuria; No incontinence Vulva:No genital lesion Vagina:Normal vaginal discharge Breast:left breast lumpectomy last year Sexual complaints:No sexual complaints; No pain during intercourse; Normal libido Menopausal Symptoms:No menopausal symptoms; Normal vaginal lubrication Psychological symptoms:No depression; No anxiety; No PMDD Etta Prasad MD Attn: Accounting[address] [place], [address], [facility] 04/21/2017 12:13:30 OBGyn Episode Ob Episode Information Episode Created Date Number of Fetuses Patient Bloodtype Patient rh Status Prepregnancy Weight lbs Domestic Partner Domestic Partner Phone Father Name Emergency Man Status 12/20/19 15 1 CLOSED Fetus Data First Name Last Name Admitted to NICU Weight (g) Sex Living Outcome Pediatric Complications Fetus ID Race Codes Race Delivery Type 4082.32 8 F Full Term [id number] Vaginal Ton Calculation Initial Ton Date Initial [...] Domestic Partner Domestic Partner Phone Father Name Emergency Man Status 12/20/19 15 1 CLOSED Fetus Data First Name Last Name Admitted to NICU Weight (g) Sex Living Outcome Pediatric Complications Fetus ID Race Codes Race Delivery Type 3742.13 4 F Full Term [id number] Vaginal Ton Calculation Initial Ton Date Initial [...] Domestic Partner Domestic Partner Phone Father Name Emergency Man Status 12/20/19 15 1 CLOSED Fetus Data First Name Last Name Admitted to NICU Weight (g) Sex Living Outcome Pediatric Complications Fetus ID Race Codes Race Delivery Type 3657.08 55 F [id number] Vaginal Ton Calculation Initial Ton Date Initial [...]
[2024-10-15 19:08] LABS: Hematocrit 40.2 % (35.0-49.0); Hemoglobin 13.7 g/dL (12.0-15.0); Immature Granulocyte Percent A 0.3 % (0.0-0.0); Lymphocytes Absolute Auto 2.36 K/mm3 (1.10-4.50); Mean Corpuscular HGB Conc 34.1 g/dL (32-36); Mean Corpuscular Hemoglobin 29.8 pg (27.0-31.0); Mean Corpuscular Volume 87.6 fL (78.0-102.0); Nucleated Red Blood Cells Absolute Auto 0.00 K/mm3 (0.00-0.00); Nucleated Red Blood Cells Perc 0.0 % (0-0.0); Platelet Count Result 286 K/mm3 (150-420); Red Blood Count 4.59 M/mm3 (4.20-5.40); White Blood Count 6.2 K/mm3 (4.8-10.8)
[2024-10-15 19:29] LABS: Alanine Aminotransferase 30 U/L (6-35); Albumin Level 4.3 g/dL (3.5-5.1); Alkaline Phosphatase 80 U/L (38-126); Anion Gap 3 mmol/L (4-12); Aspartate Amino Transferase 28 U/L (14-36); Bilirubin,Total 1.0 mg/dL (0.2-1.3); Blood Urea Nitrogen 15 mg/dL (7-17); Calcium 9.2 mg/dL (8.4-10.2); Carbon Dioxide 27 mmol/L (22-30); Chloride 106 mmol/L (98-107); Estimated Glomerular Filt Rate > 60; Glucose 98 mg/dL (65-110); Osmolality Calculated 282 mOsm/kg (285-295); Potassium 4.3 mmol/L (3.4-5.0); Sodium 136 mmol/L (137-145); Total Protein 6.9 g/dL (6.3-8.2)
== END 2024-10-15 18:53 | disposition home or self-care (01) ==
LOC: CHSLAB 18:54
PROVIDERS: PCP Internal Medicine Hematology & Oncology; Visit Provider Internal Medicine Hematology & Oncology
DX: C50.212 Malignant neoplasm of upper-inner quadrant of left female breast (principal); Z17.0 Estrogen receptor positive status [ER+]
CPT/HCPCS: 36415; 80053; 85025